=== PATIENT | male | born 1960 | race African-American/Black ===

== ENCOUNTER → 2017-05-11 16:33 | Outpatient (CLI) | payer MEDICARE | END | disposition home or self-care (01) | LOC: D.LABREF 16:33 | DX: Z86.79 Personal history of other diseases of the circulatory system (principal) ==

== ENCOUNTER → 2017-05-22 09:40 | Outpatient (CLI) | payer MEDICARE ==
--- NOTE | 2017-05-23 13:54 | EC ---
PATIENT:ABHIJEET MARCIAL DATE OF SERVICE: 05/22/17 SEX: M MEDICAL RECORD: [id number] DATE OF : 62 LOCATION:[facility] AGE OF PATIENT: 56 ADMISSION DATE: 05/22/17 REFERRING PHYSICIAN: INTERPRETING PHYSICIAN: SHAGGY FARLEY MD ECHOCARDIOGRAM REPORT ECHO CHARGES 4 ECHO COMPLETE CLINICAL DIAGNOSIS: ENDOCARDITIS, INFECTED KNEE 2 MONTHS AGO, DONE WITH ENDOCARDITIS, INFECTED KNEE 2 MO AGO, DONE WITH ANTIBOTICS ECHOCARDIOGRAPHIC MEASUREMENTS (adult normal given) AC root (d.<3.7cm) 4.0 cm LV Septum d (<1.2 cm> 1.4 cm Valve Excursion 1.8 cm LV Septum (systole) 1.6 cm Left Atria (s.<4.0cm> 3.8 cm LVPW d(<1.2cm) 1.4 cm RV (d.<2.3cm) 3.1 cm LVPW (sytole) 1.6 cm LV diastole(<5.6CM) 4.5 cm MV E-F(>70mm/sec) cm LV systole 2.8 cm LVOT Diameter 1.9 cm MV exc.(>10mm) 1.3 cm Est.ejection fraction (50-75%) % Pericardial Effusion N DOPPLER: LVIT cm/sec A 88.0 cm/sec E 121 cm/sec LA cm/sec RVSP 45 mmHg LVOT 142 cm/sec AOP1/2T m/s Asc. Ao 163 cm/sec RVOT 87 cm/sec RA cm/sec PA 119 cm/sec AV Gradient Peak 10.57mmHg AV Mean 5.59 mmHg AV Area 2.6 cm MV Gradient Peak 6.10 mmHg MV Mean 2.46 mmHg MV Area cm COMMENTS: Rotary Lithographic Press Operator: 2 SAUL CARVAJAL Application Spec: 3 Dr. Lizama TAPE# PACS DATE OF SERVICE: 05/22/2017 Echocardiogram FINDINGS: 1. Left ventricular chamber size is within normal limits. Left ventricular systolic function is normal. Overall ejection fraction estimated at 60%. 2. Left atrium, right atrium, and right ventricular chamber sizes are within ECHOCARDIOGRAM REPORT [id number] ABHIJEET MARCIAL normal limits. 3. Valvular structures have normal structure and motion. No evidence of vegetative endocarditis. 4. Doppler interrogation reveals mild mitral regurgitation, mild tricuspid regurgitation, no other valvular insufficiency or stenosis. 5. No evidence of pericardial effusion or left ventricular thrombus. OVERALL IMPRESSION: No evidence of vegetative endocarditis. TRANSINT:[id number] Voice Confirmation ID: [id number] DOCUMENT ID: [id number] SHAGGY FARLEY MD at 1354 CC: [id number] DICTATION DATE: 05/23/17 1114 STAVE CUTTING SUPERVISOR: 05/23/17 1231 DEP CLI 05/22/17 [place] [id number] [place] [id number]
== END | disposition home or self-care (01) ==
LOC: D.ECHO 05-16 09:00
DX: I33.0 Acute and subacute infective endocarditis (principal)

== ENCOUNTER 2017-11-26 19:35 | Emergency (ER) | payer MEDICARE ==
[2017-11-26 20:29] LABS: BASOPHILS 0.3 % (0-2); HEMATOCRIT 41.6 % (42.0-54.0); HEMOGLOBIN 14.1 g/dL (13.5-17.5); IMMATURE GRANULOCYTES 0.3 % (0-5); LYMPHOCYTES 44.1 % (15-50); MCH 33.2 pg (26.0-34.0); MCHC 33.9 g/dL (31.0-37.0); MCV 97.9 fL (80.0-100.0); MEAN PLATELET VOLUME 10.1 fL (7.4-10.4); MONOCYTES 7.1 % (2-11); NEUTROPHILS 46.2 % (40-80); RBC 4.25 10x6/uL (4.20-6.10); RDW 14.8 % (11.5-14.5); WBC 7.3 10x3/uL (4.8-10.8)
[2017-11-26 20:46] LABS: ANION GAP 15.9 mmol/L (8-16); BILIRUBIN - TOTAL 0.29 mg/dL (0.2-1.3); CALCIUM 8.7 mg/dL (8.5-10.1); CARBON DIOXIDE 27.4 mmol/L (21.0-32.0); CREATININE - SERUM 1.5 mg/dL (0.6-1.3); POTASSIUM - SERUM 3.3 mmol/L (3.5-5.1); PROTEIN - SERUM 8.9 g/dL (6.4-8.2)
[2017-11-26 20:51] LABS: PLATELET COUNT 229 10x3/uL (130-400)
== END 2017-11-26 22:18 | disposition home or self-care (01) ==
LOC: D.ER 19:35
PROVIDERS: Emergency Medicine
DX: T78.3XXA Angioneurotic edema, initial encounter (principal); F17.200 Nicotine dependence, unspecified, uncomplicated; I10 Essential (primary) hypertension; B20 Human immunodeficiency virus [HIV] disease

== ENCOUNTER 2018-01-25 18:41 | Emergency (ER) | payer MEDICARE ==
[2018-01-25 19:09] LABS: BASOPHILS 0.3 % (0-2); EOSINOPHILS 0.3 % (0-7); HEMATOCRIT 39.2 % (42.0-54.0); LYMPHOCYTES 35.2 % (15-50); MCH 32.4 pg (26.0-34.0); MCHC 33.2 g/dL (31.0-37.0); MCV 97.8 fL (80.0-100.0); MEAN PLATELET VOLUME 9.9 fL (7.4-10.4); MONOCYTES 18.9 % (2-11); NEUTROPHILS 45.3 % (40-80); PLATELET COUNT 150 10x3/uL (130-400); RBC 4.01 10x6/uL (4.20-6.10); RDW 14.4 % (11.5-14.5); WBC 3.6 10x3/uL (4.8-10.8)
[2018-01-25 19:21] LABS: ALBUMIN 3.7 g/dL (3.4-5.0); BILIRUBIN - TOTAL 0.4 mg/dL (0.2-1.3); CALCIUM 8.7 mg/dL (8.5-10.1); CARBON DIOXIDE 27.8 mmol/L (21.0-32.0); CREATININE - SERUM 1.7 mg/dL (0.6-1.3); PROTEIN - SERUM 8.8 g/dL (6.4-8.2)
[2018-01-25 19:23] LABS: POTASSIUM - SERUM 2.8 mmol/L (3.5-5.1)
[2018-01-25 21:03] LABS: APPEARANCE CLEAR (CLEAR); BILIRUBIN NEGATIVE (NEGATIVE); COLOR YELLOW (YELLOW); GLUCOSE NEGATIVE (NEGATIVE); KETONE NEGATIVE (NEGATIVE); NITRITE NEGATIVE (NEGATIVE); PROTEIN NEGATIVE (NEGATIVE); SPECIFIC GRAVITY 1.015 (1.005-1.020); UROBILINOGEN NORMAL (NORMAL)
== END 2018-01-25 21:10 | disposition home or self-care (01) ==
LOC: D.ER 18:41
PROVIDERS: Emergency Medicine
DX: E87.6 Hypokalemia (principal); J20.9 Acute bronchitis, unspecified; B20 Human immunodeficiency virus [HIV] disease; I10 Essential (primary) hypertension; F17.200 Nicotine dependence, unspecified, uncomplicated

== ENCOUNTER 2018-10-29 15:05 | Emergency (ER) | payer MEDICARE ==
[~2018-10-29] VITALS: Ht 188 cm; Wt 94.5 kg
[2018-10-29 15:12] VITALS: Ht 188 cm; Wt 94.5 kg
[2018-10-29] MEDS ORDERED: VERAPAMIL HCL40 MG (15:17)
[2018-10-29] MEDS ORDERED: NEURONTIN 300300 MG PO (17:36)
[2018-10-29 18:10] VITALS: BP 148/84
== END 2018-10-29 18:10 | disposition home or self-care (01) ==
LOC: D.ER 15:05
DX: G89.18 Other acute postprocedural pain (principal); Z98.890 Other specified postprocedural states

== ENCOUNTER 2018-11-05 05:26 | Emergency (ER) | payer MEDICARE, MEDICAID ==
[~2018-11-05] VITALS: Ht 188 cm; Wt 93.2 kg
[~2018-11-05 05:26] MED LIST: NEURONTIN 300300 MG PO; VERAPAMIL HCL40 MG
[2018-11-05 05:29] VITALS: Ht 188 cm; Wt 93.2 kg
[2018-11-05 06:45] VITALS: BP 208/104
== END 2018-11-05 06:45 | disposition home or self-care (01) ==
LOC: D.ER 05:26
DX: M54.5 Low back pain (principal); I10 Essential (primary) hypertension; F17.200 Nicotine dependence, unspecified, uncomplicated

== ENCOUNTER → 2018-12-23 09:42 | Outpatient (CLI) | payer MEDICARE, MEDICAID ==
[2018-11-05 05:29] VITALS: BMI 26.3
== END | disposition home or self-care (01) ==
LOC: D.LAB 09:42
DX: M54.5 Low back pain (principal); M96.1 Postlaminectomy syndrome, not elsewhere classified; M47.817 Spondylosis without myelopathy or radiculopathy, lumbosacral region; M47.899 Other spondylosis, site unspecified; M54.2 Cervicalgia

== ENCOUNTER → 2019-02-20 07:44 | Outpatient (CLI) | payer MEDICARE, MEDICAID ==
[2018-11-05 05:29] VITALS: BMI 26.3
== END | disposition home or self-care (01) ==
LOC: D.MRI 07:44
PROVIDERS: ATTEND Orthopaedic Surgery
DX: M17.0 Bilateral primary osteoarthritis of knee (principal)

== ENCOUNTER → 2019-03-04 09:51 | Outpatient (CLI) | payer MEDICARE, MEDICAID ==
[2018-11-05 05:29] VITALS: BMI 26.3
== END | disposition home or self-care (01) ==
LOC: D.MRI 09:51
PROVIDERS: ATTEND Orthopaedic Surgery
DX: M17.0 Bilateral primary osteoarthritis of knee (principal)

== ENCOUNTER → 2019-04-04 11:05 | Outpatient (CLI) | payer MEDICARE, MEDICAID ==
[2018-11-05 05:29] VITALS: BMI 26.3
[~2019-04-04 11:05] MED LIST changes: +AMITRIPTYLINE100 MG PO; +BAYER CHEWABLE81 MG PO; +BIKTARVY 50-201 EACH PO; +COREG25 MG PO; +HYDRALAZINE HCL25 MG PO; +HYDROCODON-ACE1 EAC7 PO; +K-DUR20 MEQ PO; +LASIX40 MG PO; +LYRICA100 MG PO; +VERAPAMIL HCL360 MG PO
[2019-04-04 11:28] LABS: BASOPHILS 0.4 % (0-2); EOSINOPHILS 2.7 % (0-7); HEMATOCRIT 36.3 % (42.0-54.0); HEMOGLOBIN 11.6 g/dL (13.5-17.5); IMMATURE GRANULOCYTES 0.7 % (0-5); LYMPHOCYTES 27.8 % (15-50); MCV 90.8 fL (80.0-100.0); MEAN PLATELET VOLUME 10.4 fL (7.4-10.4); MONOCYTES 8.5 % (2-11); NEUTROPHILS 59.9 % (40-80); WBC 7.3 10x3/uL (4.8-10.8)
[2019-04-04 11:29] LABS: PLATELET COUNT 203 10x3/uL (130-400)
[2019-04-04 11:43] LABS: ALBUMIN 3.4 g/dL (3.4-5.0); ANION GAP 9.6 mmol/L (8-16); BILIRUBIN - TOTAL 0.19 mg/dL (0.2-1.3); CALCIUM 9.3 mg/dL (8.5-10.1); CARBON DIOXIDE 32.9 mmol/L (21.0-32.0); CREATININE - SERUM 1.4 mg/dL (0.6-1.3); POTASSIUM - SERUM 3.5 mmol/L (3.5-5.1); PROTEIN - SERUM 8.3 g/dL (6.4-8.2)
[2019-04-04 12:56] LABS: ERYTHROCYTE SEDIMENTATION RATE 44 mm/hr (0-20)
[2019-05-19 15:22] VITALS: BMI 30.9
== END | disposition home or self-care (01) ==
LOC: D.LAB 11:05
PROVIDERS: ATTEND Orthopaedic Surgery
DX: B20 Human immunodeficiency virus [HIV] disease (principal); B18.2 Chronic viral hepatitis C; F10.20 Alcohol dependence, uncomplicated; F17.290 Nicotine dependence, other tobacco product, uncomplicated

== ENCOUNTER → 2019-04-08 08:41 | Outpatient (CLI) | payer MEDICARE, MEDICAID ==
[2018-11-05 05:29] VITALS: BMI 26.3
[~2019-04-08 08:41] MED LIST changes: -AMITRIPTYLINE100 MG PO; -BAYER CHEWABLE81 MG PO; -BIKTARVY 50-201 EACH PO; -COREG25 MG PO; -HYDRALAZINE HCL25 MG PO; -HYDROCODON-ACE1 EAC7 PO; -K-DUR20 MEQ PO; -LASIX40 MG PO; -LYRICA100 MG PO; -VERAPAMIL HCL360 MG PO
== END | disposition home or self-care (01) ==
LOC: D.MRI 08:41
PROVIDERS: ATTEND Orthopaedic Surgery
DX: D16.8 Benign neoplasm of pelvic bones, sacrum and coccyx (principal)

== ENCOUNTER 2019-04-22 10:30 | Inpatient (IN) | payer MEDICARE, MEDICAID ==
[~2019-04-22] VITALS: Ht 182.9 cm; Wt 103.4 kg
[2019-05-06] MEDS ORDERED: AMITRIPTYLINE100 MG PO (16:12)
[2019-05-06] MEDS ORDERED: LASIX40 MG PO (16:13)
[2019-05-06] MEDS ORDERED: HYDRALAZINE HCL25 MG PO (16:13)
[2019-05-06] MEDS ORDERED: LYRICA100 MG PO (16:13)
[2019-05-06] MEDS ORDERED: COREG25 MG PO (16:13)
[2019-05-06] MEDS ORDERED: K-DUR20 MEQ PO (16:14)
[2019-05-06] MEDS ORDERED: BIKTARVY 50-201 EACH PO (16:27)
[2019-05-06] MEDS ORDERED: VERAPAMIL HCL360 MG PO (16:30)
[2019-05-07 11:55] LABS: BASOPHILS 0.6 % (0-2); EOSINOPHILS 2.8 % (0-7); HEMATOCRIT 38.3 % (42.0-54.0); HEMOGLOBIN 11.9 g/dL (13.5-17.5); IMMATURE GRANULOCYTES 0.4 % (0-5); LYMPHOCYTES 31.6 % (15-50); MCH 28.7 pg (26.0-34.0); MCHC 31.1 g/dL (31.0-37.0); MCV 92.3 fL (80.0-100.0); MEAN PLATELET VOLUME 10.6 fL (7.4-10.4); MONOCYTES 12.5 % (2-11); NEUTROPHILS 52.1 % (40-80); RBC 4.15 10x6/uL (4.20-6.10); RDW 16.3 % (11.5-14.5)
[2019-05-07 11:57] LABS: PLATELET COUNT 156 10x3/uL (130-400)
[2019-05-07 11:58] LABS: APPEARANCE CLEAR (CLEAR); BILIRUBIN NEGATIVE (NEGATIVE); COLOR YELLOW (YELLOW); GLUCOSE NEGATIVE (NEGATIVE); KETONE NEGATIVE (NEGATIVE); NITRITE NEGATIVE (NEGATIVE); PROTEIN NEGATIVE (NEGATIVE); SPECIFIC GRAVITY 1.015 (1.005-1.020); UROBILINOGEN NORMAL (NORMAL)
[2019-05-07 12:05] LABS: INR 1.05 (0.85-1.17); PROTIME 13.2 SECONDS (11.6-15.0)
[2019-05-07 12:06] LABS: APTT 34.9 SECONDS (22.8-39.4)
[2019-05-07 12:21] LABS: ALBUMIN 3.4 g/dL (3.4-5.0); ANION GAP 8.9 mmol/L (8-16); BILIRUBIN - TOTAL 0.21 mg/dL (0.2-1.3); CALCIUM 8.3 mg/dL (8.5-10.1); CARBON DIOXIDE 32.4 mmol/L (21.0-32.0); CREATININE - SERUM 1.3 mg/dL (0.6-1.3); POTASSIUM - SERUM 3.3 mmol/L (3.5-5.1); PROTEIN - SERUM 8.1 g/dL (6.4-8.2)
[2019-05-13] VITALS (11 sets, daily range): BP systolic 120–188; BP diastolic 68–95; BMI 31.0
[2019-05-13 09:14] LABS: CALCIUM 8.4 mg/dL (8.5-10.1); CARBON DIOXIDE 29.4 mmol/L (21.0-32.0); CREATININE - SERUM 1.6 mg/dL (0.6-1.3); POTASSIUM - SERUM 3.4 mmol/L (3.5-5.1)
[2019-05-13 09:18] LABS: BASOPHILS 0.3 % (0-2); EOSINOPHILS 2.8 % (0-7); HEMATOCRIT 38.2 % (42.0-54.0); HEMOGLOBIN 12.3 g/dL (13.5-17.5); IMMATURE GRANULOCYTES 0.5 % (0-5); LYMPHOCYTES 33.7 % (15-50); MCH 28.9 pg (26.0-34.0); MCHC 32.2 g/dL (31.0-37.0); MCV 89.7 fL (80.0-100.0); MEAN PLATELET VOLUME 11.3 fL (7.4-10.4); MONOCYTES 7.2 % (2-11); NEUTROPHILS 55.5 % (40-80); PLATELET COUNT 162 10x3/uL (130-400); RBC 4.26 10x6/uL (4.20-6.10); WBC 5.7 10x3/uL (4.8-10.8)
--- NOTE | 2019-05-13 14:43 | NUR ---
PT ARRIVED TO PACU DROWSY BUT ORIENTED. PTS BP HIGH HOWEVER HE HAS BASELINE HYPERTENSION AND DID NOT TAKE ALL HIS HOME MEDICATIONS. NEW ORDERS REC'D FOR PRN ANTI-HYPERTENSIVE. PRN MEDICATION GIVEN AND BP NOW TRENDING DOWN AND CONTROLLED. PT ALSO C/O PAIN AND WAS PROVIDED WITH PRN PAIN MEDICATION AND ICE PACK AND ICE CHIPS. PT VOICED THANKS. NO CURRENT NEEDS. WILL CTM.
--- NOTE | 2019-05-13 15:46 | NUR ---
RECIEVED PT TO ROOM 2215 VIA BED FROM RECOVERY. ALERT AND ORIENTED. NO ACUTE DISTRESS NOTED AT THIS TIME. IV TO RIGHT HAND WITH LR @ 50 INFUSING. SITE WITHOUT REDNESS OR EDEMA. DRESSING C/D/I TO RIGHT LOWER EXTREMITY. PULSES PALPABLE. REPORTS PAIN 7/10 AT THIS TIME. ORIENTED TO CALL LIGHT, BED CONTROLS AND ROOM. CALL LIGHT WITHIN REACH. ENCOURAGED TO CALL WITH NEEDS. CONTINUE TO MONITOR.
--- NOTE | 2019-05-13 17:17 | OP ---
PATIENT NAME: ABHIJEET MARCIAL MEDICAL RECORD: [id number] :62 LOCATION:D.[facility] ADMISSION DATE:05/13/19 SURGEON: HAKAN ALMEIDA DO DATE OF OPERATION: 05/13/2019 PROCEDURE PERFORMED: Right total knee arthroplasty with 75 cruciate retaining Vanguard femur, 75 cruciate tibia, 31 three-peg thin patella, and a 12 E-poly cruciate standard bearing. PREOPERATIVE DIAGNOSIS: Right knee osteoarthritis. POSTOPERATIVE DIAGNOSIS: Right knee osteoarthritis. INDICATIONS: Mr. Marcial is a 58-year-old HIV positive male who had a right knee infection approximately 10 years ago or so. He has had right knee pain ever since and continued seeing different physicians. His right knee had been injected and did not work. I did x-ray and MRI for the signature knee to check and make sure there is no osteomyelitis of the bone and there was not, but he did have a spot on his pelvis, which had nothing to do with this. Once that was done, his insurance denied the surgery and then we got it reapproved. The patient was aware of his dramatically increased risk for infection; one due to his HIV and two due to prior septic knee. He is tired of dealing with the pain and he is willing to take the risk of possible infection as well as risks of bleeding, damage to nerves and vessels, need for further surgery, loosening, also blood clots, and even . He signed consent. SURGEON: Hakan Almeida DO I was assisted by Wei Perry, advanced nurse practitioner. He assisted with retraction. Also first front ventilator was Amol Smith, who assisted with closing. DESCRIPTION OF PROCEDURE: The patient was given block by anesthesia in the preoperative area. He was taken to the operative suite, laid in supine position, and given 2 grams of Ancef preoperatively and 80 mg of gentamicin. The right lower extremity was prepped and draped in sterile fashion. He was also given a gram of TXA. Once he was prepped and draped in sterile fashion, time-out was performed and everyone was in agreement with correct side, site, patient, and procedure. The incision was marked out and covered in Ioban. Once the Ioban was covering, a #10 blade scalpel was used to dissect down through the skin to the capsule and then a fresh #10 blade was used to do medial parapatellar approach through the knee. The patella was subluxed and fat pad was removed and milled down to fit a 31, so approximately 6 mm was taken off the patella. Once that was completed, the femur was exposed and the cutting guide for signature knee was placed and pinned and then the distal femur was cut. The same process was done for the tibia and then the knee was brought into extension. Lamina roasterman was brought in between them. The menisci were removed with Bovie. Any bleeding was coagulated with Aquamantys as tourniquet was not used. The extension block did not fit, so more distal femur and more tibia were taken. Once I had sufficient tibia and distal femur, medial release was done and extension block fit well. The 4-in-1 cutting block was put on the femur for 75. Austen wing was used to ensure no notching and the femur was cut. Once femur was cut, the trial was impacted into place. Tibia with poly liner was floated in and ranged, and rotation was marked. Once rotation was marked, the lug holes were drilled for the femur and the peg holes for the patella. This was removed. The tibia was exposed and a 75 was used to size it. This was OPERATIVE REPORT [id number] ABHIJEET MARCIAL drilled and punched. Extra holes were placed in the tibia as well as in the femur to get more bleeding as the femur depressed it. The cement was then mixed and put in the tibia as well as component impacted into place. Excess cement was removed. This step was repeated and then the femur was put on. A 10 poly was put in between them and brought to extension. Excess cement was removed from that and then the patella was prepared with curette, irrigation, and suction. The cement was put on the patella and on the component and squeezed into place. Excess cement was removed. The knee was thoroughly irrigated at that point while the cement dried. Once the cement was dried, I trialed a 10 and a 12 poly. The 12 fit better and had good medial and lateral stability and concomitant full extension. This was put in and locked into place. The antibiotic powder of vancomycin and tobramycin was put in the knee and Surgicel powder was placed in the knee. The capsule was then closed with [id number] of #2 Vicryl. The skin was closed with 2-0 Vicryl in inverted interrupted fashion and a ZipLine was placed on the knee. Once the ZipLine was placed on the knee, it was covered with Adaptic, 4 x 4, ABD, Webril, Tyrel wrap, and then ELLY hose stocking was placed up to the knee. The patient was then awakened and taken to recovery in stable condition. BLOOD LOSS: Approximately 250 mL. COMPLICATIONS: None. TRANSINT:[id number] Voice Confirmation ID: [id number] DOCUMENT ID: [id number] HAKAN ALMEIDA DO at 1717 CC: [id number] DICTATION DATE: 05/13/19 1408 PLATER SUPERVISOR: 05/13/19 1535 ADM IN [place] [id number] [place] [id number]
--- NOTE | 2019-05-13 20:00 | NUR ---
ASSESSMENT PER FLOWSHEET. DRSG TO RT KNEE C/D/I. CPM ON AT THIS TIME DENIES PAIN. IV PATENT RT HAND OF 1/2NS AT 50CC'S/HR. TEDS/SCD'S ON BILATERAL LOWER LEGS.
--- NOTE | 2019-05-13 21:30 | NUR ---
CPM REMOVED. PATIENT REQUESTING SOME FOOD TO EAT. SANDWICH TRAY AND 2 SODAS GIVEN TO PT. 100% CONSUMED.
--- NOTE | 2019-05-13 22:30 | NUR ---
VOIDED IN URINAL. UA SPECIMEN OBTAINED AND SENT TO LAB.
[2019-05-13 23:58] LABS: APPEARANCE CLEAR (CLEAR); BILIRUBIN NEGATIVE (NEGATIVE); COLOR YELLOW (YELLOW); GLUCOSE NEGATIVE (NEGATIVE); KETONE NEGATIVE (NEGATIVE); NITRITE NEGATIVE (NEGATIVE); PROTEIN TRACE mg/dL (NEGATIVE); UROBILINOGEN NORMAL (NORMAL)
--- NOTE | 2019-05-14 | NUR ---
AWAKE TALKING ON HIS PHONE DENIES PAIN OR DISCOMFORT.
--- NOTE | 2019-05-14 02:00 | NUR ---
MEDS GIVEN PER DEC. AWAKE PLAYING A GAME ON HIS PHONE.
--- NOTE | 2019-05-14 03:42 | NUR ---
RESTING QUIETLY BODY IN GOOD ALIGNMENT.
[2019-05-14 05:23] VITALS: BP 169/92
[2019-05-14 05:34] LABS: BASOPHILS 0.1 % (0-2); EOSINOPHILS 0.1 % (0-7); HEMATOCRIT 34.2 % (42.0-54.0); HEMOGLOBIN 10.8 g/dL (13.5-17.5); IMMATURE GRANULOCYTES 0.2 % (0-5); LYMPHOCYTES 5.9 % (15-50); MCH 28.7 pg (26.0-34.0); MCHC 31.6 g/dL (31.0-37.0); MEAN PLATELET VOLUME 10.8 fL (7.4-10.4); MONOCYTES 7.3 % (2-11); NEUTROPHILS 86.4 % (40-80); PLATELET COUNT 167 10x3/uL (130-400); RBC 3.76 10x6/uL (4.20-6.10); RDW 16.1 % (11.5-14.5)
[2019-05-14 06:05] LABS: ANION GAP 12.2 mmol/L (8-16); CALCIUM 7.8 mg/dL (8.5-10.1); CARBON DIOXIDE 26.3 mmol/L (21.0-32.0); CREATININE - SERUM 1.8 mg/dL (0.6-1.3); POTASSIUM - SERUM 3.5 mmol/L (3.5-5.1)
[2019-05-14 06:25] LABS: WBC 10.2 10x3/uL (4.8-10.8)
[2019-05-14 09:05] VITALS: BP 192/98
[2019-05-14 12:57] VITALS: BP 161/83
[2019-05-14 17:08] LABS: BASOS 0 % (Not Estab.); CD4 - % CD4 POS. LYMPH 21.2 % (30.8-58.5); CD4 - ABSOLUTE CD4 HELPER 148 /uL (359-1519); EOS 0 % (Not Estab.); HEMATOCRIT 37.2 % (37.5-51.0); HEMOGLOBIN 11.4 g/dL (13.0-17.7); LYMPHS 7 % (Not Estab.); LYMPHS (ABSOLUTE) 0.7 x10E3/uL (0.7-3.1); MCH 28.1 pg (26.6-33.0); MCHC 30.6 g/dL (31.5-35.7); MCV 92 fL (79-97); MONOCYTES 3 % (Not Estab.); MONOCYTES (ABSOLUTE) 0.3 x10E3/uL (0.1-0.9); NEUTROPHILS 89 % (Not Estab.); PLATELETS 188 x10E3/uL (150-450); RBC 4.06 x10E6/uL (4.14-5.80); WBC 10.1 x10E3/uL (3.4-10.8)
[2019-05-14 19:21] VITALS: BP 137/87
--- NOTE | 2019-05-14 19:37 | NUR ---
PT RESTING IN BED AT 1600. NOTICED BRIGHT RED BLOOD TO CANDELARIA WRAP AND ELLY HOSE 4"X4". TOOK DRESSINF DOWN. INCISION ZIPPER IN TACT. SWELLING NOTED. NO ACTIVE BLEEDING NOTED. 4X4S APPLIED. WRAPPED WITH NEW CANDELARIA AND ELLY. SPOKE WITH DR ALMEIDA. DR ALMEIDA , "OK." PT PLACED ON CPM. ICE PACK ON KNEE. NO S/S OF ACUTE DISTRESS. CL IN PLACE.
--- NOTE | 2019-05-14 20:00 | NUR ---
ASSESSMENT PER FLOWSHEET. DRSG TO RT KNEE WITH DRY BLOOD NOTED ON CANDELARIA WRAP. ICE BAG PLACED TO SITE. IV PATENT RT HAND OF 1/2NS AT 50CC'S/HR. SITE CLEAR. VOIDS WELL IN URINAL. SCD'S ON RT LEG IN CPM MACHINE. WILL REMOVE AT 2030
--- NOTE | 2019-05-14 21:00 | NUR ---
MEDS GIVEN PER DEC. CPM OFF. PATIENT TURNS SELF IN BED.
[2019-05-14 21:25] VITALS: BP 136/78
--- NOTE | 2019-05-15 | NUR ---
EYES CLOSED RESPIRATIONS WITH EASE AND UNLABORED.
[2019-05-15 02:22] VITALS: BP 141/78
--- NOTE | 2019-05-15 03:42 | NUR ---
RESTING QUIETLY DENIES NEEDS.
[2019-05-15 05:55] VITALS: BP 146/82
[2019-05-15 06:12] LABS: BASOPHILS 0.2 % (0-2); EOSINOPHILS 3.4 % (0-7); HEMATOCRIT 32.4 % (42.0-54.0); HEMOGLOBIN 10.2 g/dL (13.5-17.5); IMMATURE GRANULOCYTES 0.3 % (0-5); LYMPHOCYTES 6.9 % (15-50); MCH 28.1 pg (26.0-34.0); MCHC 31.5 g/dL (31.0-37.0); MCV 89.3 fL (80.0-100.0); MEAN PLATELET VOLUME 11.3 fL (7.4-10.4); MONOCYTES 7.6 % (2-11); NEUTROPHILS 81.6 % (40-80); PLATELET COUNT 159 10x3/uL (130-400); RBC 3.63 10x6/uL (4.20-6.10)
[2019-05-15 06:41] LABS: ANION GAP 13.3 mmol/L (8-16); CALCIUM 7.4 mg/dL (8.5-10.1); CARBON DIOXIDE 25.5 mmol/L (21.0-32.0); CREATININE - SERUM 1.8 mg/dL (0.6-1.3); POTASSIUM - SERUM 3.8 mmol/L (3.5-5.1)
--- NOTE | 2019-05-15 08:03 | NUR ---
PT RESTING IN BED. ON CPM. "PAIN OF 15!" NO S/S OF ACUTE DISTRESS. CL IN PLACE.
[2019-05-15 09:41] VITALS: BP 159/87
--- NOTE | 2019-05-15 10:39 | NUR ---
WHILE PT UP WITH PT. BRIGHT RED BLOOD 6X6 NOTICED ON CANDELARIA WRAP. CHANGED DRESSING PER MD ORDER. ICE PACK APPLIED. NO S/S OF ACUTE DISTRESS. CL IN PLACE.
[2019-05-15 13:51] VITALS: BP 123/76
--- NOTE | 2019-05-15 15:09 | MORECARE ---
CASE MANAGEMENT DISCHARGE SUMMARY PATIENT: ABHIJEET MARCIAL UNIT: [id number] ADM DATE: 05/13/19 AGE: 58 : 62 SEX: M ROOM/BED: D.2215 AUTHOR: TAYLOR NEGRO PHYSICIAN: REFERRING PHYSICIAN: JUNE ALMEIDA DO DATE OF SERVICE: 05/15/19 Discharge Plan Patient Name: ABHIJEET MARCIAL [facility] [facility] 1960 Planned Disposition: Home Anticipated Discharge Date: Discharge Date: Expected LOS: Initial Reviewer: [email or web address] Initial Review Date: 05/13/2019 Generated: 05/15/19 4:09 pm DCPIA - Discharge Planning Initial Assessment Updated by [email or web address]: Anita Baeza on 05/15/19 3:06 pm * Is the patient Alert and Oriented? Yes * How many steps to enter\exit or inside your home? 10-14 * PCP RIDGE * Pharmacy [facility] * Preadmission Environment Home Alone * ADLs Independent * Equipment Rolling Walker Walker * Other Equipment CPM ICE MACHINE * List name and contact numbers for known caregivers / representatives who currently or will assist patient after discharge: KATARZYNA MARCIAL [phone] * Verbal permission to speak to the caregivers and representatives has been obtained from the patient. N/A * Community resources currently utilized None * Additional services required to return to the preadmission environment? Yes * Can the patient safely return to the preadmission environment? Yes * Has this patient been hospitalized within the prior 30 days at any hospital? No Patient Name: ABHIJEET MARCIAL Page [id number] at 1509 All edits/amendments must be made on the electronic document DICTATION DATE: 05/15/19 1509 CRUSHED STONE GRADER: BECK 05/15/19 1509 RPT#: [id number] DC DATE: STATUS: ADM IN [facility] [address] [place] [address] END OF REPORT
--- NOTE | 2019-05-15 15:20 | MORECARE ---
CASE MANAGEMENT DISCHARGE SUMMARY PATIENT: ABHIJEET MARCIAL UNIT: [id number] ADM DATE: 05/13/19 AGE: 58 : 62 SEX: M ROOM/BED: D.2215 AUTHOR: SRUTHI,DOC PHYSICIAN: REFERRING PHYSICIAN: JUNE ALMEIDA DO DATE OF SERVICE: 05/15/19 Discharge Plan Patient Name: ABHIJEET MARCIAL Facility: [facility]:[place] : 1960 Planned Disposition: Home Anticipated Discharge Date: Discharge Date: Expected LOS: Initial Reviewer: [email or web address] Initial Review Date: 05/13/2019 Generated: 05/15/19 4:20 pm Comments DCP- Discharge Planning Updated by [email or web address]: Anita Baeza on 05/15/19 2:[address] Patient Name: ABHIJEET MARCIAL Admission Status: Elective Accout number: [id number] Admission Date: 05-13-2019 : 1960 Admission Diagnosis:UNILATERAL PRIMARY OSTEOARTHRITIS, RIGHT KNEE Attending: JUNE ALMEIDA Current LOS: 2 Anticipated DC Date: Planned Disposition: Home Primary Insurance: [facility] MEDICARE SOLUTIONS Discharge Planning Comments: CM met with patient to complete initial dc planning assessment. CM educated patient on the CM role and verbal consent given by patient to complete assessment. Patient lives at home independently, he lives alone. At discharge patient plans to return home and feels this is a safe discharge. He stated that his son will be his one to drive him home and also take him to and from OP PT at [facility]. CM discussed availability of home health, rehab services, and medical equipment. He has a walker x2 CPM and Ice Machine that was set up by Dr Levy office. I have set up his OP PT appointment for SundayMay 20 @ 9:45am . A copy of the order will be sent home with the patient in his DC packet. IMM served and explained to patient. Patient denied known discharge needs at this time. CM will continue to follow and will assist as needed with dc plans/needs. Green Chain Worker: Anita Baeza DCPIA - Discharge Planning Initial Assessment Updated by [email or web address]: Anita Baeza on 05/15/19 3:06 pm * Is the patient Alert and Oriented? Yes * How many steps to enter\exit or inside your home? 10-14 * PCP RIDGE * Pharmacy [facility] * Preadmission Environment Home Alone * ADLs Independent * Equipment Rolling Walker Walker * Other Equipment CPM ICE MACHINE * List name and contact numbers for known caregivers / representatives who currently or will assist patient after discharge: KATARZYNA MARCIAL [phone] * Verbal permission to speak to the caregivers and representatives has been obtained from the patient. N/A * Community resources currently utilized None * Additional services required to return to the preadmission environment? Yes * Can the patient safely return to the preadmission environment? Yes * Has this patient been hospitalized within the prior 30 days at any hospital? No Coverage Notice Reviewer: [id number] Rachel Baeza Notice Issued Date-Time: 05/15/2019 14:15 Notice Type: IM Discharge Notice Notice Delivered To: Patient Relationship to Patient: Floor Sanding Machine Operator Name: Delivery Method: HAND - Hand Delivered Jahaira Days: Prior Verbal Notification: Recipient Understood Notice: Yes Recipient Signature: Yes Med Rec Note Co-signed by Attending: Coverage Notice Comment: Last DP export: 05/15/19 2:09 p Patient Name: ABHIJEET MARCIAL Page [id number] at 1520 All edits/amendments must be made on the electronic document DICTATION DATE: 05/15/19 152 DELIVERER PHARMACY: [facility] 05/15/19 1520 RPT#: [id number] DC DATE: STATUS: ADM IN [facility] [address] [place] [address] END OF REPORT
--- NOTE | 2019-05-15 16:00 | NUR ---
PT ITCHING."THE OXYCODONE IS MAKING ME CLAW MYSELF." CALLED DR ALMEIDA. OXYCODONE DC. TO FOR NORCO 10/325MG Q4PRN FOR PAIN. NO S/S OF ACUTE DISTRESS. CL IN PLACE.
[2019-05-15 17:46] VITALS: BP 135/53
--- NOTE | 2019-05-15 18:43 | NUR ---
1830 PT ON CPM. NORCO GIVEN FOR PAIN ORDERED PRN. NO S/S OF ACUTE DISTRESS. CL IN PLACE.
[2019-05-15 21:13] VITALS: BP 119/63
--- NOTE | 2019-05-16 04:23 | NUR ---
ASSESSED AT THE BEGINNING OF THE SHIFT. PT IS ALERT AND ORIENTED, ABLE TO VERBALIZE NEEDS. HE WAS ON CPM AT THE BEGINNING OF THE SHIFT AND TOLERATED IT WELL. HIS DRESSING IS CLEAN DRY AND INTACT. HE REQUESTED THAT THE ELLY BE REMOVED AND REFUSED THE SCD ON HIS OTHER LEG. EARLY IN THE EVENING HE REQUESTED THE STUFF TO TAKE A BEDBATH AND TOOK IT BY HIMSELF WITH A SET UP. ABOUT 2300 HE PULLED HIS IV OUT AND AT THAT TIME IT WAS STOPPED. HE FELT HE WAS GOING TO GET TO GO HOME TODAY SO WE LEFT IT OUT WITH THE HOPE THAT HE WOULD NOT NEED ANOTHER ONE. HE HAS DONE WELL WITH HIS PAIN MEDS AND SLEPT MOST OF THE NIGHT SO FAR.
[2019-05-16 05:28] VITALS: BP 124/54
[2019-05-16 06:58] LABS: BASOPHILS 0.1 % (0-2); EOSINOPHILS 3.5 % (0-7); HEMATOCRIT 29.6 % (42.0-54.0); HEMOGLOBIN 9.5 g/dL (13.5-17.5); IMMATURE GRANULOCYTES 0.5 % (0-5); LYMPHOCYTES 6.8 % (15-50); MCH 28.3 pg (26.0-34.0); MCHC 32.1 g/dL (31.0-37.0); MCV 88.1 fL (80.0-100.0); MEAN PLATELET VOLUME 11.5 fL (7.4-10.4); MONOCYTES 7.8 % (2-11); NEUTROPHILS 81.3 % (40-80); PLATELET COUNT 174 10x3/uL (130-400); RBC 3.36 10x6/uL (4.20-6.10); RDW 15.7 % (11.5-14.5); WBC 9.3 10x3/uL (4.8-10.8)
--- NOTE | 2019-05-16 07:20 | NUR ---
PER WEB ARCHITECT PT TEMP THIS MORNING 101.7, DR ALMEIDA ADVISED OF TEMP[, GAVE PT I/S AND TEACHING COMPLETED, PT VOICED UNDERSTANDING, CONTINUE WITH PLAN OF CARE
[2019-05-16 07:30] LABS: CALCIUM 7.3 mg/dL (8.5-10.1); CARBON DIOXIDE 21.1 mmol/L (21.0-32.0); POTASSIUM - SERUM 4.1 mmol/L (3.5-5.1)
[2019-05-16 07:32] LABS: CREATININE - SERUM 3.1 mg/dL (0.6-1.3)
[2019-05-16 08:20] VITALS: BP 137/77
[2019-05-16 12:25] VITALS: BP 145/58
--- NOTE | 2019-05-16 13:44 | NUR ---
I have reviewed this patient and I concur with the Shift Assessment completed by the Licensed Practical Nurse today this shift.
--- NOTE | 2019-05-16 14:56 | NUR ---
ASSISTED PT BACK TO BED FROM SITTING UP IN CHAIR, PT IS A 2 PERSON ASSIST, W/V IN PLACE CONTINUE WITH PLAN OF CARE
--- NOTE | 2019-05-16 15:38 | NUR ---
PER DR. ALMEIDA'S ORDERS A PREVENA DRESSING WAS APPLIED OVER THE SURGICAL INCISION ON RIGHT KNEE. INCISION WAS INTACT AND WITHOUT REDNESS OR ODOR. PT TOLERATED WELL.
[2019-05-16 15:48] VITALS: BP 102/54
--- NOTE | 2019-05-16 15:50 | NUR ---
Rehab Prescreening Consult recieved and the chart has been reviewed. He is managed Medicare and will require a preauth. He has a PT eval and an OT eval ordered. Once both are completed all information will be submitted for insurance review. Dulce Aguillon RN Clinical Liaison, Rehab
--- NOTE | 2019-05-16 16:22 | NUR ---
PT IV IN RT FA CAME OUT WHEN PT ROLLED OVER IN BED. PT HAS NO IV MEDS SCHEDULED, 1/S NS AT 50 WILL DC PT IV. CONTINUE WITH PLAN OF CARE
[2019-05-16 20:38] VITALS: BP 101/54
--- NOTE | 2019-05-16 21:00 | NUR ---
A&O X 4. REPORTS HIS PAIN LEVEL HAS GONE DOWN AND WISHES TO BE PUT ON CPM NOW. INFORMED IT WILL BE REMOVED AT MIDNIGHT, PT VERBALIZED UNDERSTANDING. CPM APPLIED, WILL CONTINUE TO MONITOR.
--- NOTE | 2019-05-17 02:02 | NUR ---
I have reviewed this patient and I concur with the Shift Assessment completed by the Licensed Practical Nurse today this shift.
[2019-05-17 04:00] VITALS: BP 116/58
[2019-05-17 06:24] LABS: ANION GAP 14.1 mmol/L (8-16); CALCIUM 7.3 mg/dL (8.5-10.1); CARBON DIOXIDE 23.5 mmol/L (21.0-32.0); CREATININE - SERUM 2.8 mg/dL (0.6-1.3); POTASSIUM - SERUM 3.6 mmol/L (3.5-5.1)
[2019-05-17 06:48] LABS: BASOPHILS 0.2 % (0-2); EOSINOPHILS 4.8 % (0-7); HEMATOCRIT 27.4 % (42.0-54.0); HEMOGLOBIN 8.9 g/dL (13.5-17.5); IMMATURE GRANULOCYTES 0.7 % (0-5); LYMPHOCYTES 8.2 % (15-50); MCH 28.3 pg (26.0-34.0); MCHC 32.5 g/dL (31.0-37.0); MEAN PLATELET VOLUME 10.7 fL (7.4-10.4); MONOCYTES 9.3 % (2-11); NEUTROPHILS 76.8 % (40-80); PLATELET COUNT 179 10x3/uL (130-400); RBC 3.15 10x6/uL (4.20-6.10); RDW 15.5 % (11.5-14.5); WBC 8.2 10x3/uL (4.8-10.8)
[2019-05-17 08:46] VITALS: BP 135/77
[2019-05-17 12:42] VITALS: BP 117/57
--- NOTE | 2019-05-17 14:01 | MORECARE ---
CASE MANAGEMENT DISCHARGE SUMMARY PATIENT: ABHIJEET MARCIAL UNIT: [id number] ADM DATE: 05/13/19 AGE: 58 : 62 SEX: M ROOM/BED: D.2215 AUTHOR: SRUTHI,DOC PHYSICIAN: REFERRING PHYSICIAN: JUNE ALMEIDA DO DATE OF SERVICE: 05/17/19 Discharge Plan Patient Name: ABHIJEET MARCIAL Facility: [facility]:[place] : 1960 Planned Disposition: Home Anticipated Discharge Date: Discharge Date: Expected LOS: Initial Reviewer: [email or web address] Initial Review Date: 05/13/2019 Generated: 05/17/19 3:01 pm Comments DCP- Discharge Planning Updated by [email or web address]: Jada Villarreal on 05/17/19 12:[address] [facility] IS FOLLOWING THIS PATIENT. PHYSICAL THERAPY EVAL HAS BEEN COMPLETED. THE OT EVAL WILL LIKELY BE DONE ON SUNDAY. THE LIBRARY MEDIA TECHNICIAN WILL FORWARD APPROPRIATE CLINICAL W/ PT AND OT EVAL TO THE PATIENT'S MANAGED MEDICARE INSURER FOR AUTHORIZATION WHEN OT EVAL COMPLETE. LIKELY WILL SUBMIT TO [facility] MEDICARE SOLUTIONS ON SUNDAY. DCP- Discharge Planning Updated by [id number]: Anita Baeza on 05/15/19 2:[address] Patient Name: ABHIJEET MARCIAL Admission Status: Elective Accout number: [id number] Admission Date: 05-13-2019 : 1960 Admission Diagnosis:UNILATERAL PRIMARY OSTEOARTHRITIS, RIGHT KNEE Attending: JUNE ALMEIDA Current LOS: 2 Anticipated DC Date: Planned Disposition: Home Primary Insurance: [facility] MEDICARE SOLUTIONS Discharge Planning Comments: CM met with patient to complete initial dc planning assessment. CM educated patient on the CM role and verbal consent given by patient to complete assessment. Patient lives at home independently, he lives alone. At discharge patient plans to return home and feels this is a safe discharge. He stated that his son will be his one to drive him home and also take him to and from OP PT at [facility]. CM discussed availability of home health, rehab services, and medical equipment. He has a walker x2 CPM and Ice Machine that was set up by Dr Levy office. I have set up his OP PT appointment for SundayMay 20 @ 9:45am . A copy of the order will be sent home with the patient in his DC packet. IMM served and explained to patient. Patient denied known discharge needs at this time. CM will continue to follow and will assist as needed with dc plans/needs. Conference Services Manager: Anita Baeza DCPIA - Discharge Planning Initial Assessment Updated by [email or web address]: Anita Baeza on 05/15/19 3:06 pm * Is the patient Alert and Oriented? Yes * How many steps to enter\exit or inside your home? 10-14 * PCP FARO * Pharmacy [facility] [address] * Preadmission Environment Home Alone * ADLs Independent * Equipment Rolling Walker Walker * Other Equipment CPM ICE MACHINE * List name and contact numbers for known caregivers / representatives who currently or will assist patient after discharge: KATARZYNA MARCIAL [phone] * Verbal permission to speak to the caregivers and representatives has been obtained from the patient. N/A * Community resources currently utilized None * Additional services required to return to the preadmission environment? Yes * Can the patient safely return to the preadmission environment? Yes * Has this patient been hospitalized within the prior 30 days at any hospital? No Coverage Notice Reviewer: [email or web address] - Anita Baeza Notice Issued Date-Time: 05/15/2019 14:15 Notice Type: IM Discharge Notice Notice Delivered To: Patient Relationship to Patient: Communications Representative Name: Delivery Method: HAND - Hand Delivered Jahaira Days: Prior Verbal Notification: Recipient Understood Notice: Yes Recipient Signature: Yes Med Rec Note Co-signed by Attending: Coverage Notice Comment: Last DP export: 05/15/19 2:20 p Patient Name: ABHIJEET MARCIAL Page [id number] at 1401 All edits/amendments must be made on the electronic document DICTATION DATE: 05/17/19 1401 CATH LAB RADIOLOGY TECHNICIAN: BECK 05/17/19 1401 RPT#: [id number] DC DATE: STATUS: ADM IN [facility] [address] [place] [address] END OF REPORT
--- NOTE | 2019-05-17 14:18 | NUR ---
I have reviewed this patient and I concur with the Shift Assessment completed by the Licensed Practical Nurse today this shift.
[2019-05-17 18:26] VITALS: BP 124/65
--- NOTE | 2019-05-17 21:00 | NUR ---
A&O. REMOVED FROM CPM. DENIES PAIN/DISCOMFORT. PT GOT UP AND AMBULATED TO CHAIR INDEPENDENTLY. REPORTS DECREASED APPETITE SINCE ADMISSION. DENIES NEEDS AT THIS TIME, WILL CONTINUE TO MONITOR.
[2019-05-18 02:19] VITALS: BP 101/45
--- NOTE | 2019-05-18 05:06 | NUR ---
I have reviewed this patient and I concur with the Shift Assessment completed by the Licensed Practical Nurse today this shift.
[2019-05-18 06:01] VITALS: BP 151/78
[2019-05-18 06:17] LABS: HEMATOCRIT 27.3 % (42.0-54.0); HEMOGLOBIN 8.9 g/dL (13.5-17.5); MCH 28.3 pg (26.0-34.0); MCHC 32.6 g/dL (31.0-37.0); MCV 86.7 fL (80.0-100.0); MEAN PLATELET VOLUME 10.7 fL (7.4-10.4); PLATELET COUNT 200 10x3/uL (130-400); RBC 3.15 10x6/uL (4.20-6.10); RDW 15.4 % (11.5-14.5); WBC 6.7 10x3/uL (4.8-10.8)
[2019-05-18 06:18] LABS: ANION GAP 11.8 mmol/L (8-16); CALCIUM 7.9 mg/dL (8.5-10.1); CARBON DIOXIDE 24.8 mmol/L (21.0-32.0); POTASSIUM - SERUM 3.6 mmol/L (3.5-5.1)
--- NOTE | 2019-05-18 08:00 | NUR ---
ASSESSMENT PER FLOW SHEET. PT IS WITHOUT DISTRESS.CALL LIGHT IN REACH.
[2019-05-18 08:28] LABS: EOSINOPHILS 10 % (0-7); HYPOCHROMASIA 3+; LYMPHOCYTES 16 % (15-50); MONOCYTES 9 % (2-11); NEUTROPHILS 64 % (40-80); PLATELET ESTIMATE NORMAL; PLATELET MORPHOLOGY GIANT PLTS PRESENT
[2019-05-18 09:50] VITALS: BP 141/73
[2019-05-18 12:59] VITALS: BP 128/66
--- NOTE | 2019-05-18 15:20 | NUR ---
REHAB PRESCREENING Rehab referral received and chart reviewed. This patient has [facility] as his insurance provider which requires a pre-auth for acute inpatient rehab. OT eval has been ordered but not completed. Will submit information to [facility] for pre-auth once OT is entered. Thank you for this referral! Niecy Peters, MANAGER MILITARY Rehab PD
--- NOTE | 2019-05-18 18:09 | NUR ---
REMAINS WITHOUT CHANGE FROM INITIAL SHIFT ASSESSMENT.CONT PLAN OF CARE
[2019-05-18 18:47] VITALS: BP 145/77
[2019-05-18 20:00] VITALS: BP 130/72
--- NOTE | 2019-05-18 20:18 | NUR ---
RCV`D PT. PT SITTING IN BED WATCHING TV, ALERT AND ORIENTED. NO SIGNS OF DISTRESS. PT ASKED ME WHAT MEDS HE WOULD BE TAKING TONIGHT AND WHEN I TOLD HIM THE LIST OF MEDS HE WOULD GET AT 9 HE SAID THAT HE "DIDNT NEED ALL THAT CRAP BUT WE WOULD DEAL WITH IT LATER." DENIES ANY NEEDS AT THIS TIME. BED LOW, CALL LIGHT IN REACH, RAILS UP X 2. WILL CONTINUE TO MONITOR.
[2019-05-19] VITALS: BP 129/67
[2019-05-19 04:00] VITALS: BP 126/71
--- NOTE | 2019-05-19 05:39 | NUR ---
PT REFUSED PROTONIX STATED "I DONT NEED THAT CRAP, AINT NOTHING WRONG WITH MY STOMACH".
[2019-05-19 08:38] LABS: BASOPHILS 0.4 % (0-2); EOSINOPHILS 4.8 % (0-7); HEMATOCRIT 23.7 % (42.0-54.0); HEMOGLOBIN 7.7 g/dL (13.5-17.5); IMMATURE GRANULOCYTES 1.6 % (0-5); LYMPHOCYTES 17.7 % (15-50); MCH 27.9 pg (26.0-34.0); MCHC 32.5 g/dL (31.0-37.0); MCV 85.9 fL (80.0-100.0); MONOCYTES 12.8 % (2-11); NEUTROPHILS 62.7 % (40-80); PLATELET COUNT 162 10x3/uL (130-400); RBC 2.76 10x6/uL (4.20-6.10); RDW 15.6 % (11.5-14.5); WBC 6.9 10x3/uL (4.8-10.8)
[2019-05-19 08:56] LABS: ANION GAP 13.9 mmol/L (8-16); CALCIUM 7.6 mg/dL (8.5-10.1); CARBON DIOXIDE 24.6 mmol/L (21.0-32.0); CREATININE - SERUM 1.5 mg/dL (0.6-1.3); POTASSIUM - SERUM 3.5 mmol/L (3.5-5.1)
--- NOTE | 2019-05-19 13:01 | NUR ---
WOUND CARE RIGHT KNEE INCISION SITE - MINIMAL DRAINAGE, NO SIGNS OF INFECTION, INCISION HOLDING WELL. [employer] PREVENA WOUND VAC APPLIED AND WELL TOLERATED. VAC TO STAY IN PLACE FOR ONE WEEK. PLEASE CONTACT WOUND CARE NURSE WITH ANY QUESTIONS OR CONCERNS.
--- NOTE | 2019-05-19 13:02 | NUR ---
I have reviewed this patient and I concur with the Shift Assessment completed by the Licensed Practical Nurse today this shift.
[2019-05-19 13:56] VITALS: BP 131/74
[2019-05-19 15:22] VITALS: Ht 182.9 cm; Wt 103.4 kg
--- NOTE | 2019-05-19 16:00 | NUR ---
OT NOTE: PT STATED HE HAS A FEVER . PT WAITING TO GO TO INPATIENT REHAB. PT COMPLETED SIT TO STAND WITH SBA. PT COMPLETED SUPINE TO SIT WITH SBA. PT COMPLETED EOB SITTING BALANCE WITH SBA. PT COMPLETED SIMPLE GROOMING MOD I. THANK YOU, JEET ZAMUDIO
--- NOTE | 2019-05-19 16:23 | NUR ---
MEDICATED WITH NORCO AT THIS TIME FOR C/O KNEE PAIN AND HEADACHE. C/L IN REACH AT BEDSIDE.
--- NOTE | 2019-05-19 19:40 | NUR ---
UP AMBULATING THROUGHOUT UNIT AD JORDYN WITH WALKER, DENIES ANY PAIN AT THIS TIME. ABLE TO VOICE ALL NEEDS. WILL NOTE ANY CHANGE.
[2019-05-19 20:00] VITALS: BP 133/71
[2019-05-20] VITALS: BP 133/67
--- NOTE | 2019-05-20 03:05 | NUR ---
I have reviewed this patient and I concur with the Shift Assessment completed by the Licensed Practical Nurse today this shift.
[2019-05-20 04:00] VITALS: BP 144/78
--- NOTE | 2019-05-20 04:05 | NUR ---
RESTED WELL THIS SHIFT WITH NO COMPLAINTS. ABLE TO VOICE ALL NEEDS.
[2019-05-20 04:48] LABS: BASOPHILS 0.2 % (0-2); HEMATOCRIT 24.8 % (42.0-54.0); HEMOGLOBIN 7.9 g/dL (13.5-17.5); IMMATURE GRANULOCYTES 1.7 % (0-5); LYMPHOCYTES 21.8 % (15-50); MCH 27.6 pg (26.0-34.0); MCHC 31.9 g/dL (31.0-37.0); MCV 86.7 fL (80.0-100.0); MEAN PLATELET VOLUME 10.5 fL (7.4-10.4); MONOCYTES 11.6 % (2-11); NEUTROPHILS 60.7 % (40-80); PLATELET COUNT 194 10x3/uL (130-400); RBC 2.86 10x6/uL (4.20-6.10); RDW 15.6 % (11.5-14.5)
[2019-05-20 05:17] LABS: ALBUMIN 2.5 g/dL (3.4-5.0); ANION GAP 12.8 mmol/L (8-16); BILIRUBIN - TOTAL 0.5 mg/dL (0.2-1.3); CALCIUM 7.7 mg/dL (8.5-10.1); CARBON DIOXIDE 24.8 mmol/L (21.0-32.0); CREATININE - SERUM 1.5 mg/dL (0.6-1.3); POTASSIUM - SERUM 3.6 mmol/L (3.5-5.1); PROTEIN - SERUM 6.8 g/dL (6.4-8.2)
--- NOTE | 2019-05-20 05:24 | NUR ---
REFUSED PROTONIX STATED HE DOESN'T HAVE INDIGESTION AND WILL NOT BE HAVING INDIGESTION TODAY, THIS NURSE ATTEMPTED TO EDUCATE IMPORTANCE OF MEDICATION BUT PT STATED HES FINE AND JUST NEEDS A PAIN PILL TO GET HIS DAY STARTED. MEDICATION ADMINISTERED PER ORDERS. WILL NOTE ANY CHANGE.
[2019-05-20 08:46] VITALS: BP 152/79
[2019-05-20 13:23] VITALS: BP 108/67
--- NOTE | 2019-05-20 14:31 | NUR ---
MEDICATED WITH NORCO AT THIS TIME FOR C/O KNEE PAIN. C/L IN REACH AT BEDSIDE
--- NOTE | 2019-05-20 16:56 | NUR ---
Rehab Note- Continue to await determination for PreAuth for inpatient acute rehab stay. Clinicals have been faxed for review. Have spoken w/ ADRIAN Vazquez. Allyson Cartagena RN Clinical Liaison, [facility] Rehab
--- NOTE | 2019-05-20 19:40 | NUR ---
LYING IN BED WATCHING TELEVISION, PLEASANT MOOD, SALINE LOC TO RIGHT AC. ABLE TO VOICE ALL NEEDS, DENIES ANY NEEDS AT THIS TIME. WILL NOTE CHANGE.
--- NOTE | 2019-05-21 00:46 | NUR ---
REQUESTED PAIN MEDICATION FOR PAIN LEVEL 9/10, MEDICATION GIVEN PER ORDERS. WILL NOTE ANY CHANGE.
[2019-05-21 00:58] VITALS: BP 158/66
--- NOTE | 2019-05-21 04:45 | NUR ---
I have reviewed this patient and I concur with the Shift Assessment completed by the Licensed Practical Nurse today this shift.
[2019-05-21 04:54] VITALS: BP 131/59
[2019-05-21 05:21] LABS: BASOPHILS 0.2 % (0-2); EOSINOPHILS 2.3 % (0-7); HEMATOCRIT 25.5 % (42.0-54.0); HEMOGLOBIN 8.2 g/dL (13.5-17.5); IMMATURE GRANULOCYTES 1.7 % (0-5); LYMPHOCYTES 18.9 % (15-50); MCH 27.8 pg (26.0-34.0); MCHC 32.2 g/dL (31.0-37.0); MCV 86.4 fL (80.0-100.0); MEAN PLATELET VOLUME 10.7 fL (7.4-10.4); MONOCYTES 9.5 % (2-11); NEUTROPHILS 67.4 % (40-80); PLATELET COUNT 198 10x3/uL (130-400); RBC 2.95 10x6/uL (4.20-6.10)
--- NOTE | 2019-05-21 05:26 | NUR ---
REFUSED MORNING PROTONIX, STATED HE DIDN'T NEED IT BECAUSE HE WAS NOT GOING TO GET INDIGESTION. WILL NOTE ANY CHANGE.
[2019-05-21 05:37] LABS: ALBUMIN 2.5 g/dL (3.4-5.0); ANION GAP 12.1 mmol/L (8-16); BILIRUBIN - TOTAL 0.47 mg/dL (0.2-1.3); CALCIUM 7.9 mg/dL (8.5-10.1); CARBON DIOXIDE 25.6 mmol/L (21.0-32.0); CREATININE - SERUM 1.4 mg/dL (0.6-1.3); POTASSIUM - SERUM 3.7 mmol/L (3.5-5.1)
[2019-05-21 05:47] LABS: WBC 10.3 10x3/uL (4.8-10.8)
[2019-05-21 08:58] VITALS: BP 142/79
--- NOTE | 2019-05-21 10:32 | NUR ---
Recieved a voice mail this AM from Alessandra at [facility]. This patient has been denied by the medical management trainer for [facility]. If the physician disagrees a peer to peer can be done before 3:00 PM 05/22/19 by calling Alessandra at [phone] with the physician's name and contact information. Relayed this information to the CM Taylor Baeza. Dulce Aguillon RN Clinical Liaison, Rehab
[2019-05-21 12:49] VITALS: BP 140/74
--- NOTE | 2019-05-21 13:33 | MORECARE ---
CASE MANAGEMENT DISCHARGE SUMMARY PATIENT: ABHIJEET MARCIAL UNIT: [id number] ADM DATE: 05/13/19 AGE: 58 : 62 SEX: M ROOM/BED: D.2215 AUTHOR: SRUTHI,TAYLOR PHYSICIAN: REFERRING PHYSICIAN: JUNE ALMEIDA DO DATE OF SERVICE: 05/21/19 Discharge Plan Patient Name: ABHIJEET MARCIAL Facility: [facility]:[place] : 1960 Planned Disposition: Home Anticipated Discharge Date: Discharge Date: Expected LOS: Initial Reviewer: [email or web address] Initial Review Date: 05/13/2019 Generated: 05/21/19 2:32 pm Comments DCP- Discharge Planning Updated by [id number]: Anita Baeza on 05/21/19 12:[address] Received a denial for inpatient rehab, spoke with Dr Almeida and he would like to do a Peer to Peer. I called Alessandra at [phone] to set up the P2P. I will wait and see the verdict. DCP- Discharge Planning Updated by [id number]: Jada Villarreal on 05/17/19 12:[address] [facility] IS FOLLOWING THIS PATIENT. PHYSICAL THERAPY EVAL HAS BEEN COMPLETED. THE OT EVAL WILL LIKELY BE DONE ON SUNDAY. THE PRODUCTION HONING MACHINE OPERATOR WILL FORWARD APPROPRIATE CLINICAL W/ PT AND OT EVAL TO THE PATIENT'S MANAGED MEDICARE INSURER FOR AUTHORIZATION WHEN OT EVAL COMPLETE. LIKELY WILL SUBMIT TO [facility] MEDICARE [facility]UTIONS ON SUNDAY. DCP- Discharge Planning Updated by [id number]: Anita Baeza on 05/15/19 2:[address] Patient Name: ABHIJEET MARCIAL Admission Status: Elective Accout number: [id number] Admission Date: 05-13-2019 : 1960 Admission Diagnosis:UNILATERAL PRIMARY OSTEOARTHRITIS, RIGHT KNEE Attending: JUNE ALMEIDA Current LOS: 2 Anticipated DC Date: Planned Disposition: Home Primary Insurance: [facility] MEDICARE SOLUTIONS Discharge Planning Comments: CM met with patient to complete initial dc planning assessment. CM educated patient on the CM role and verbal consent given by patient to complete assessment. Patient lives at home independently, he lives alone. At discharge patient plans to return home and feels this is a safe discharge. He stated that his son will be his one to drive him home and also take him to and from OP PT at [facility]. CM discussed availability of home health, rehab services, and medical equipment. He has a walker x2 CPM and Ice Machine that was set up by Dr Levy office. I have set up his OP PT appointment for SundayMay 20 @ 9:45am . A copy of the order will be sent home with the patient in his DC packet. IMM served and explained to patient. Patient denied known discharge needs at this time. CM will continue to follow and will assist as needed with dc plans/needs. Finished Cloth Examiner: Anita Baeza DCPIA - Discharge Planning Initial Assessment Updated by [id number]: Anita Baeza on 05/15/19 3:06 pm * Is the patient Alert and Oriented? Yes * How many steps to enter\exit or inside your home? 10-14 * PCP FARO * Pharmacy [facility] * Preadmission Environment Home Alone * ADLs Independent * Equipment Rolling Walker Walker * Other Equipment CPM ICE MACHINE * List name and contact numbers for known caregivers / representatives who currently or will assist patient after discharge: KATARZYNA MARCIAL [phone] * Verbal permission to speak to the caregivers and representatives has been obtained from the patient. N/A * Community resources currently utilized None * Additional services required to return to the preadmission environment? Yes * Can the patient safely return to the preadmission environment? Yes * Has this patient been hospitalized within the prior 30 days at any hospital? No Coverage Notice Reviewer: [id number] - Anita Baeza Notice Issued Date-Time: 05/15/2019 14:15 Notice Type: IM Discharge Notice Notice Delivered To: Patient Relationship to Patient: Wrapper Stemmer Hand Name: Delivery Method: HAND - Hand Delivered Jahaira Days: Prior Verbal Notification: Recipient Understood Notice: Yes Recipient Signature: Yes Med Rec Note Co-signed by Attending: Coverage Notice Comment: Last DP export: 05/17/19 1:01 p Patient Name: ABHIJEET MARCIAL Page [phone] at 1333 All edits/amendments must be made on the electronic document DICTATION DATE: 05/21/19 1332 POWER EQUIPMENT TECHNOLOGY INSTRUCTOR: BECK 05/21/19 1332 RPT#: [id number] DC DATE: STATUS: ADM IN [facility] [address] [place] [address] END OF REPORT
--- NOTE | 2019-05-21 20:30 | NUR ---
PATIENT UP AMBULATING IN HALLWAY WITH WALKER. STATES NEEDS NEW DRESSING TO RIGHT KNEE. " TOOK SHOWER AND DRESSING IS FALLING OFF". DRESSING NOTED TO BE LOOSE AND WATER SOAKED. DRESSING CHANGED PER REQUEST. CLIPS INTACT TO RIGHT KNEE INCISION WITHOUT DRAINAGE NOTED. SL TO RAC WITHOUT REDNESS OR EDEMA NOTED. CL IN REACH
[2019-05-21 20:49] VITALS: BP 158/75
[2019-05-22 00:39] VITALS: BP 130/73
[2019-05-22 04:54] VITALS: BP 137/75
[2019-05-22 05:31] LABS: BASOPHILS 0.2 % (0-2); EOSINOPHILS 2.5 % (0-7); HEMATOCRIT 25.6 % (42.0-54.0); HEMOGLOBIN 8.5 g/dL (13.5-17.5); IMMATURE GRANULOCYTES 1.8 % (0-5); LYMPHOCYTES 18.2 % (15-50); MCH 28.6 pg (26.0-34.0); MCHC 33.2 g/dL (31.0-37.0); MCV 86.2 fL (80.0-100.0); MEAN PLATELET VOLUME 10.6 fL (7.4-10.4); MONOCYTES 10.5 % (2-11); NEUTROPHILS 66.8 % (40-80); PLATELET COUNT 218 10x3/uL (130-400); RBC 2.97 10x6/uL (4.20-6.10); RDW 15.7 % (11.5-14.5); WBC 8.9 10x3/uL (4.8-10.8)
[2019-05-22 06:04] LABS: ALBUMIN 2.5 g/dL (3.4-5.0); BILIRUBIN - TOTAL 0.48 mg/dL (0.2-1.3); CALCIUM 7.9 mg/dL (8.5-10.1); CARBON DIOXIDE 25.7 mmol/L (21.0-32.0); CREATININE - SERUM 1.5 mg/dL (0.6-1.3); POTASSIUM - SERUM 3.7 mmol/L (3.5-5.1); PROTEIN - SERUM 7.1 g/dL (6.4-8.2)
[2019-05-22 08:22] VITALS: BP 126/71
--- NOTE | 2019-05-22 08:53 | MORECARE ---
CASE MANAGEMENT DISCHARGE SUMMARY PATIENT: ABHIJEET MARCIAL UNIT: [id number] ADM DATE: 05/13/19 AGE: 58 : 62 SEX: M ROOM/BED: D.2215 AUTHOR: SRUTHI,DOC PHYSICIAN: REFERRING PHYSICIAN: JUNE ALMEIDA DO DATE OF SERVICE: 05/22/19 Discharge Plan Patient Name: ABHIJEET MARCIAL Facility: [facility]:[place] : 1960 Planned Disposition: Home Anticipated Discharge Date: Discharge Date: Expected LOS: Initial Reviewer: [email or web address] Initial Review Date: 05/13/2019 Generated: 05/22/19 9:53 am Comments DCP- Discharge Planning Updated by [email or web address]: Anita Baeza on 05/22/19 7:[address] P2P WAS DONE BY DR ALMEIDA FOR [facility] & DENIAL WAS UPHEALD. SPOKE WITH PATIENT ABOUT CHOOSING A SKILLED FACILITY AND HE WOULD LIKE TO GO TO [facility] SIGNED AND PLACED IN CHART. IMM SERVED AND EXPLAINED AND I WILL SEND REFERRAL TO [facility] DCP- Discharge Planning Updated by [id number]: Anita Baeza on 05/21/19 12:[address] Received a denial for inpatient rehab, spoke with Dr Almeida and he would like to do a Peer to Peer. I called Alessandra at [phone] to set up the P2P. I will wait and see the verdict. DCP- Discharge Planning Updated by [email or web address]: Jada Villarreal on 05/17/19 12:[address] [facility] IS FOLLOWING THIS PATIENT. PHYSICAL THERAPY EVAL HAS BEEN COMPLETED. THE OT EVAL WILL LIKELY BE DONE ON SUNDAY. THE FENDER REPAIRER WILL FORWARD APPROPRIATE CLINICAL W/ PT AND OT EVAL TO THE PATIENT'S MANAGED MEDICARE INSURER FOR AUTHORIZATION WHEN OT EVAL COMPLETE. LIKELY WILL SUBMIT TO [facility] MEDIC[facility] ON SUNDAY. DCP- Discharge Planning Updated by [id number]: Anita Baeza on 05/15/19 2:[address] Patient Name: ABHIJEET MARCIAL Admission Status: Elective Accout number: [id number] Admission Date: 05-13-2019 : 1960 Admission Diagnosis:UNILATERAL PRIMARY OSTEOARTHRITIS, RIGHT KNEE Attending: JUNE ALMEIDA Current LOS: 2 Anticipated DC Date: Planned Disposition: Home Primary Insurance: [facility] MEDICARE SOLUTIONS Discharge Planning Comments: CM met with patient to complete initial dc planning assessment. CM educated patient on the CM role and verbal consent given by patient to complete assessment. Patient lives at home independently, he lives alone. At discharge patient plans to return home and feels this is a safe discharge. He stated that his son will be his one to drive him home and also take him to and from OP PT at [facility]. CM discussed availability of home health, rehab services, and medical equipment. He has a walker x2 CPM and Ice Machine that was set up by Dr Levy office. I have set up his OP PT appointment for SundayMay 20 @ 9:45am . A copy of the order will be sent home with the patient in his DC packet. IMM served and explained to patient. Patient denied known discharge needs at this time. CM will continue to follow and will assist as needed with dc plans/needs. Tissue Coordinator: Anita Baeza DCPIA - Discharge Planning Initial Assessment Updated by [email or web address]: Anita Baeza on 05/15/19 3:06 pm * Is the patient Alert and Oriented? Yes * How many steps to enter\exit or inside your home? 10-14 * PCP RIDGE * Pharmacy [facility] * Preadmission Environment Home Alone * ADLs Independent * Equipment Rolling Walker Walker * Other Equipment CPM ICE MACHINE * List name and contact numbers for known caregivers / representatives who currently or will assist patient after discharge: KATARZYNA MARCIAL [phone] * Verbal permission to speak to the caregivers and representatives has been obtained from the patient. N/A * Community resources currently utilized None * Additional services required to return to the preadmission environment? Yes * Can the patient safely return to the preadmission environment? Yes * Has this patient been hospitalized within the prior 30 days at any hospital? No External Providers External Provider: [facility] Next Contact Date: Service Request Date: Service Type: Resolution: Reviewer: Comments: Coverage Notice Reviewer: [id number] - Anita Baeza Notice Issued Date-Time: 05/15/2019 14:15 Notice Type: IM Discharge Notice Notice Delivered To: Patient Relationship to Patient: Automatic Beading Lathe Operator Name: Delivery Method: HAND - Hand Delivered Jahaira Days: Prior Verbal Notification: Recipient Understood Notice: Yes Recipient Signature: Yes Med Rec Note Co-signed by Attending: Coverage Notice Comment: Reviewer: [id number] Rachel Baeza Notice Issued Date-Time: 05/22/2019 8:40 Notice Type: IM Discharge Notice Notice Delivered To: Patient Relationship to Patient: Automatic Beading Lathe Operator Name: Delivery Method: HAND - Hand Delivered Jahaira Days: Prior Verbal Notification: Recipient Understood Notice: Yes Recipient Signature: Yes Med Rec Note Co-signed by Attending: Coverage Notice Comment: Last DP export: 05/21/19 12:33 p Patient Name: ABHIJEET MARCIAL Page 40837 at 0853 All edits/amendments must be made on the electronic document DICTATION DATE: 05/22/1952 REHABILITATION CASEWORKER: BECK 05/22/19 0852 RPT#: [id number] DC DATE: STATUS: ADM IN [address] [place] [address] END OF REPORT
--- NOTE | 2019-05-22 11:41 | MORECARE ---
CASE MANAGEMENT DISCHARGE SUMMARY PATIENT: ABHIJEET MARCIAL UNIT: [id number] ADM DATE: 05/13/19 AGE: 58 : 62 SEX: M ROOM/BED: D.2215 AUTHOR: SRUTHI,DOC PHYSICIAN: REFERRING PHYSICIAN: JUNE ALMEIDA DO DATE OF SERVICE: 05/22/19 Discharge Plan Patient Name: ABHIJEET MARCIAL Facility: [facility]:[place] : 1960 Planned Disposition: Home Anticipated Discharge Date: Discharge Date: Expected LOS: Initial Reviewer: [id number] Initial Review Date: 05/13/2019 Generated: 05/22/19 12:41 pm Comments DCP- Discharge Planning Updated by [email or web address]: Anita Baeza on 05/22/19 7:[address] P2P WAS DONE BY DR [facility] & DENIAL WAS UPHEALD. SPOKE WITH PATIENT ABOUT CHOOSING A SKILLED FACILITY AND HE WOULD LIKE TO GO TO [facility] SIGNED AND PLACED IN CHART. IMM SERVED AND EXPLAINED AND I WILL SEND REFERRAL TO [facility] DCP- Discharge Planning Updated by [email or web address]: Anita Baeza on 05/21/19 12:[address] Received a denial for inpatient rehab, spoke with Dr Almeida and he would like to do a Peer to Peer. I called Alessandra at [phone] to set up the P2P. I will wait and see the verdict. DCP- Discharge Planning Updated by [id number]: Jada Villarreal on 05/17/19 12:[address] [facility] IS FOLLOWING THIS PATIENT. PHYSICAL THERAPY EVAL HAS BEEN COMPLETED. THE OT EVAL WILL LIKELY BE DONE ON SUNDAY. THE PLUMBER CUB WILL FORWARD APPROPRIATE CLINICAL W/ PT AND OT EVAL TO THE PATIENT'S MANAGED MEDICARE INSURER FOR AUTHORIZATION WHEN OT EVAL COMPLETE. LIKELY WILL SUBMIT TO [facility]IC[facility]UT[facility] ON SUNDAY. DCP- Discharge Planning Updated by [id number]: Anita Baeza on 05/15/19 2:[address] Patient Name: ABHIJEET MARCIAL Admission Status: Elective Accout number: [id number] Admission Date: 05-13-2019 : 1960 Admission Diagnosis:UNILATERAL PRIMARY OSTEOARTHRITIS, RIGHT KNEE Attending: JUNE ALMEIDA Current LOS: 2 Anticipated DC Date: Planned Disposition: Home Primary Insurance: [facility] MEDICARE SOLUTIONS Discharge Planning Comments: CM met with patient to complete initial dc planning assessment. CM educated patient on the CM role and verbal consent given by patient to complete assessment. Patient lives at home independently, he lives alone. At discharge patient plans to return home and feels this is a safe discharge. He stated that his son will be his one to drive him home and also take him to and from OP PT at [facility]. CM discussed availability of home health, rehab services, and medical equipment. He has a walker x2 CPM and Ice Machine that was set up by Dr Levy office. I have set up his OP PT appointment for SundayMay 20 @ 9:45am . A copy of the order will be sent home with the patient in his DC packet. IMM served and explained to patient. Patient denied known discharge needs at this time. CM will continue to follow and will assist as needed with dc plans/needs. Oyster Buyer: Anita Baeza DCPIA - Discharge Planning Initial Assessment Updated by [email or web address]: Anita Baeza on 05/15/19 3:06 pm * Is the patient Alert and Oriented? Yes * How many steps to enter\exit or inside your home? 10-14 * PCP RIDGE * Pharmacy [facility] * Preadmission Environment Home Alone * ADLs Independent * Equipment Rolling Walker Walker * Other Equipment CPM ICE MACHINE * List name and contact numbers for known caregivers / representatives who currently or will assist patient after discharge: KATARZYNA MARCIAL [phone] * Verbal permission to speak to the caregivers and representatives has been obtained from the patient. N/A * Community resources currently utilized None * Additional services required to return to the preadmission environment? Yes * Can the patient safely return to the preadmission environment? Yes * Has this patient been hospitalized within the prior 30 days at any hospital? No External Providers External Provider: DEBO Chan Next Contact Date: Service Request Date: Service Type: Resolution: Reviewer: Comments: Coverage Notice Reviewer: [id number] - Anita Baeza Notice Issued Date-Time: 05/15/2019 14:15 Notice Type: IM Discharge Notice Notice Delivered To: Patient Relationship to Patient: Herbicide Service Sales Representative Name: Delivery Method: HAND - Hand Delivered Jahaira Days: Prior Verbal Notification: Recipient Understood Notice: Yes Recipient Signature: Yes Med Rec Note Co-signed by Attending: Coverage Notice Comment: Reviewer: LICHA Baeza Notice Issued Date-Time: 05/22/2019 8:40 Notice Type: IM Discharge Notice Notice Delivered To: Patient Relationship to Patient: Herbicide Service Sales Representative Name: Delivery Method: HAND - Hand Delivered Jahaira Days: Prior Verbal Notification: Recipient Understood Notice: Yes Recipient Signature: Yes Med Rec Note Co-signed by Attending: Coverage Notice Comment: Reviewer: LICHA aBeza Notice Issued Date-Time: 05/22/2019 8:40 Notice Type: Patient Choice Letter Notice Delivered To: Patient Relationship to Patient: Herbicide Service Sales Representative Name: Delivery Method: - Jahaira Days: Prior Verbal Notification: Recipient Understood Notice: Yes Recipient Signature: Yes Med Rec Note Co-signed by Attending: Coverage Notice Comment: [facility] DP export: 05/22/19 7:53 a Patient Name: ABHIJEET MARCIAL Page [phone] at 1141 All edits/amendments must be made on the electronic document DICTATION DATE: 05/22/19 1141 MANAGER VIDEO: BECK 05/22/19 1141 RPT#: [id number] DC DATE: STATUS: ADM IN [facility] [address] [place] [address] END OF REPORT
--- NOTE | 2019-05-22 11:49 | MORECARE ---
CASE MANAGEMENT DISCHARGE SUMMARY PATIENT: ABHIJEET MARCIAL UNIT: [id number] ADM DATE: 05/13/19 AGE: 58 : 62 SEX: M ROOM/BED: D.2215 AUTHOR: SRUTHI,DOC PHYSICIAN: REFERRING PHYSICIAN: JUNE ALMEIDA DO DATE OF SERVICE: 05/22/19 Discharge Plan Patient Name: ABHIJEET MARCIAL [facility] : 1960 Planned Disposition: Home Anticipated Discharge Date: Discharge Date: Expected LOS: Initial Reviewer: [email or web address] Initial Review Date: 05/13/2019 Generated: 05/22/19 12:48 pm Comments DCP- Discharge Planning Updated by [email or web address]: Anita Baeza on 05/22/19 10:[address] RECEIVED AUTH FROM [facility], THEY WILL ACCEPT PATIENT ONCE [facility] IS BACK DCP- Discharge Planning Updated by [email or web address]: Anita Baeza on 05/22/19 7:[address] [facility] DENIAL WAS UPHEALD. SPOKE WITH PATIENT ABOUT CHOOSING A SKILLED FACILITY AND HE WOULD LIKE TO GO TO [facility], [place] SIGNED AND PLACED IN CHART. IMM SERVED AND EXPLAINED AND I WILL SEND REFERRAL TO [facility] DCP- Discharge Planning Updated by [id number]: Anita Baeza on 05/21/19 12:[address] Received a denial for inpatient rehab, spoke with Dr Almeida and he would like to do a Peer to Peer. I called Alessandra at [phone] to set up the P2P. I will wait and see the verdict. DCP- Discharge Planning Updated by [id number]: Jada Villarreal on 05/17/19 12:[address] [facility] IS FOLLOWING THIS PATIENT. PHYSICAL THERAPY EVAL HAS BEEN COMPLETED. THE OT EVAL WILL LIKELY BE DONE ON SUNDAY. THE GAS STATION MANAGER WILL FORWARD APPROPRIATE CLINICAL W/ PT AND OT EVAL TO THE PATIENT'S MANAGED MEDICARE INSURER FOR AUTHORIZATION WHEN OT EVAL COMPLETE. LIKELY WILL SUBMIT TO [facility] MEDICARE SOLUTIONS ON SUNDAY. DCP- Discharge Planning Updated by [id number]: Anita Baeza on 05/15/19 2:[address] Patient Name: ABHIJEET MARCIAL Admission Status: Elective Accout number: [id number] Admission Date: 05-13-2019 : 1960 Admission Diagnosis:UNILATERAL PRIMARY OSTEOARTHRITIS, RIGHT KNEE Attending: JUNE ALMEIDA Current LOS: 2 Anticipated DC Date: Planned Disposition: Home Primary Insurance: [facility] MEDICARE SOLUTIONS Discharge Planning Comments: CM met with patient to complete initial dc planning assessment. CM educated patient on the CM role and verbal consent given by patient to complete assessment. Patient lives at home independently, he lives alone. At discharge patient plans to return home and feels this is a safe discharge. He stated that his son will be his one to drive him home and also take him to and from OP PT at [facility]. CM discussed availability of home health, rehab services, and medical equipment. He has a walker x2 CPM and Ice Machine that was set up by Dr Levy office. I have set up his OP PT appointment for SundayMay 20 @ 9:45am . A copy of the order will be sent home with the patient in his DC packet. IMM served and explained to patient. Patient denied known discharge needs at this time. CM will continue to follow and will assist as needed with dc plans/needs. Manager College: Anita Baeza DCPIA - Discharge Planning Initial Assessment Updated by [email or web address]: Anita Baeza on 05/15/19 3:06 pm * Is the patient Alert and Oriented? Yes * How many steps to enter\exit or inside your home? 10-14 * PCP RIDGE * Pharmacy [facility] * Preadmission Environment Home Alone * ADLs Independent * Equipment Rolling Walker Walker * Other Equipment CPM ICE MACHINE * List name and contact numbers for known caregivers / representatives who currently or will assist patient after discharge: KATARZYNA MARCIAL [phone] * Verbal permission to speak to the caregivers and representatives has been obtained from the patient. N/A * Community resources currently utilized None * Additional services required to return to the preadmission environment? Yes * Can the patient safely return to the preadmission environment? Yes * Has this patient been hospitalized within the prior 30 days at any hospital? No Coverage Notice Reviewer: [id number] - Anita Baeza Notice Issued Date-Time: 05/15/2019 14:15 Notice Type: IM Discharge Notice Notice Delivered To: Patient Relationship to Patient: Transit Bus Operator Name: Delivery Method: HAND - Hand Delivered Jahaira Days: Prior Verbal Notification: Recipient Understood Notice: Yes Recipient Signature: Yes Med Rec Note Co-signed by Attending: Coverage Notice Comment: Reviewer: LICHA Baeza Notice Issued Date-Time: 05/22/2019 8:40 Notice Type: IM Discharge Notice Notice Delivered To: Patient Relationship to Patient: Transit Bus Operator Name: Delivery Method: HAND - Hand Delivered Jahaira Days: Prior Verbal Notification: Recipient Understood Notice: Yes Recipient Signature: Yes Med Rec Note Co-signed by Attending: Coverage Notice Comment: Reviewer: [id number] Baeza Notice Issued Date-Time: 05/22/2019 8:40 Notice Type: Patient Choice Letter Notice Delivered To: Patient Relationship to Patient: Transit Bus Operator Name: Delivery Method: - Jahaira Days: Prior Verbal Notification: Recipient Understood Notice: Yes Recipient Signature: Yes Med Rec Note Co-signed by Attending: Coverage Notice Comment: [facility] DP export: 05/22/19 10:41 a Patient Name: ABHIJEET MARCIAL Page 43924 at 1149 All edits/amendments must be made on the electronic document DICTATION DATE: 05/22/191147 HAND ETCHER HELPER: BECK 05/22/19 114 RPT#: [id number] DC DATE: STATUS: ADM IN [facility] [address] [place] [address] END OF REPORT
[2019-05-22] MEDS ORDERED: BAYER CHEWABLE81 MG PO (13:00)
[2019-05-22] MEDS ORDERED: HYDROCODON-ACE1 EAC7 PO (13:00)
[2019-05-22 13:15] VITALS: BP 97/54
--- NOTE | 2019-05-22 15:08 | MORECARE ---
CASE MANAGEMENT DISCHARGE SUMMARY PATIENT: ABHIJEET MARCIAL UNIT: [id number] ADM DATE: 05/13/19 AGE: 58 : 62 SEX: M ROOM/BED: D.2215 AUTHOR: SRUTHI,DOC PHYSICIAN: REFERRING PHYSICIAN: JUNE ALMEIDA DO DATE OF SERVICE: 05/22/19 Discharge Plan Patient Name: ABHIJEET MARCIAL Facility: [facility]:[place] : 1960 Planned Disposition: Home Anticipated Discharge Date: Discharge Date: Expected LOS: Initial Reviewer: [id number] Initial Review Date: 05/13/2019 Generated: 05/22/19 4:08 pm Comments DCP- Discharge Planning Updated by [email or web address]: Anita Baeza on 05/22/19 2:[address] PATIENT WILL BE DISCHARGING TO [facility] TO A SKILLED BED THEY WILL PICK HIM UP 3:30. CM TO FOLLOW AND ASSIST WITH DC PLANNING DCP- Discharge Planning Updated by [email or web address]: Anita Baeza on 05/22/19 10:[address] RECEIVED AUTH FROM [facility], THEY WILL ACCEPT PATIENT ONCE QAMAR IS BACK DCP- Discharge Planning Updated by [email or web address]: Anita Baeza on 05/22/19 7:[address] P2P WAS DONE BY DR ALMEIDA FOR INPATIETN REHAB & DENIAL WAS UPHEALD. SPOKE WITH PATIENT ABOUT CHOOSING A SKILLED FACILITY AND HE WOULD LIKE TO GO TO [facility], CRYSTAL SIGNED AND PLACED IN CHART. IMM SERVED AND EXPLAINED AND I WILL SEND REFERRAL TO [facility] DCP- Discharge Planning Updated by [id number]: Anita Baeza on 05/21/19 12:[address] Received a denial for inpatient rehab, spoke with Dr Almeida and he would like to do a Peer to Peer. I called Alessandra at [phone] to set up the P2P. I will wait and see the verdict. DCP- Discharge Planning Updated by [id number]: Jada Villarreal on 05/17/19 12:[address] [facility] IS FOLLOWING THIS PATIENT. PHYSICAL THERAPY EVAL HAS BEEN COMPLETED. THE OT EVAL WILL LIKELY BE DONE ON SUNDAY. THE METHOD CONSULTANT WILL FORWARD APPROPRIATE CLINICAL W/ PT AND OT EVAL TO THE PATIENT'S MANAGED MEDICARE INSURER FOR AUTHORIZATION WHEN OT EVAL COMPLETE. LIKELY WILL SUBMIT TO [facility] MEDICARE SOLUTIONS ON SUNDAY. DCP- Discharge Planning Updated by [id number]: Anita Baeza on 05/15/19 2:[address] Patient Name: ABHIJEET MARCIAL Admission Status: Elective Accout number: [id number] Admission Date: 05-13-2019 : 1960 Admission Diagnosis:UNILATERAL PRIMARY OSTEOARTHRITIS, RIGHT KNEE Attending: JUNE ALMEIDA Current LOS: 2 Anticipated DC Date: Planned Disposition: Home Primary Insurance: [facility] MEDICARE SOLUTIONS Discharge Planning Comments: CM met with patient to complete initial dc planning assessment. CM educated patient on the CM role and verbal consent given by patient to complete assessment. Patient lives at home independently, he lives alone. At discharge patient plans to return home and feels this is a safe discharge. He stated that his son will be his one to drive him home and also take him to and from OP PT at [facility]. CM discussed availability of home health, rehab services, and medical equipment. He has a walker x2 CPM and Ice Machine that was set up by Dr Levy office. I have set up his OP PT appointment for SundayMay 20 @ 9:45am . A copy of the order will be sent home with the patient in his DC packet. IMM served and explained to patient. Patient denied known discharge needs at this time. CM will continue to follow and will assist as needed with dc plans/needs. Stadium Manager: Anita Baeza DCPIA - Discharge Planning Initial Assessment Updated by [id number]: Anita Baeza on 05/15/19 3:06 pm * Is the patient Alert and Oriented? Yes * How many steps to enter\exit or inside your home? 10-14 * PCP FARO * Pharmacy [facility] * Preadmission Environment Home Alone * ADLs Independent * Equipment Rolling Walker Walker * Other Equipment CPM ICE MACHINE * List name and contact numbers for known caregivers / representatives who currently or will assist patient after discharge: KATARZYNA MARCIAL [phone] * Verbal permission to speak to the caregivers and representatives has been obtained from the patient. N/A * Community resources currently utilized None * Additional services required to return to the preadmission environment? Yes * Can the patient safely return to the preadmission environment? Yes * Has this patient been hospitalized within the prior 30 days at any hospital? No Coverage Notice Reviewer: LICHA Baeza Notice Issued Date-Time: 05/15/2019 14:15 Notice Type: IM Discharge Notice Notice Delivered To: Patient Relationship to Patient: Flarer Name: Delivery Method: HAND - Hand Delivered Jahaira Days: Prior Verbal Notification: Recipient Understood Notice: Yes Recipient Signature: Yes Med Rec Note Co-signed by Attending: Coverage Notice Comment: Reviewer: LICHA Baeza Notice Issued Date-Time: 05/22/2019 8:40 Notice Type: IM Discharge Notice Notice Delivered To: Patient Relationship to Patient: Flarer Name: Delivery Method: HAND - Hand Delivered Jahaira Days: Prior Verbal Notification: Recipient Understood Notice: Yes Recipient Signature: Yes Med Rec Note Co-signed by Attending: Coverage Notice Comment: Reviewer: LICHA Baeza Notice Issued Date-Time: 05/22/2019 8:40 Notice Type: Patient Choice Letter Notice Delivered To: Patient Relationship to Patient: Flarer Name: Delivery Method: - Jahaira Days: Prior Verbal Notification: Recipient Understood Notice: Yes Recipient Signature: Yes Med Rec Note Co-signed by Attending: Coverage Notice Comment: [facility] Last DP export: 05/22/19 10:49 a Patient Name: ABHIJEET MARCIAL Page [phone] at 1508 All edits/amendments must be made on the electronic document DICTATION DATE: 05/22/19 1508 CHECKING DEPARTMENT SUPERVISOR: BECK 05/22/19 1508 RPT#: [id number] DC DATE: STATUS: ADM IN [facility] [address] [place] [address] END OF REPORT
--- NOTE | 2019-05-22 15:18 | MORECARE ---
CASE MANAGEMENT DISCHARGE SUMMARY PATIENT: ABHIJEET MARCIAL UNIT: [id number] ADM DATE: 05/13/19 AGE: 58 : 62 SEX: M ROOM/BED: D.2215 AUTHOR: SRUTHI,DOC PHYSICIAN: REFERRING PHYSICIAN: JUNE ALMEIDA DO DATE OF SERVICE: 05/22/19 Discharge Plan Patient Name: ABHIJEET MARCIAL Facility: [facility]:[place] : 1960 Planned Disposition: Home Anticipated Discharge Date: Discharge Date: Expected LOS: Initial Reviewer: [email or web address] Initial Review Date: 05/13/2019 Generated: 05/22/19 4:18 pm Comments DCP- Discharge Planning Updated by [email or web address]: Ainta Baeza on 05/22/19 2:[address] PATIENT WILL BE DISCHARGING TO [facility] TO A SKILLED BED THEY WILL PICK HIM UP 3:30. CM TO FOLLOW AND ASSIST WITH DC PLANNING DCP- Discharge Planning Updated by [email or web address]: Anita Baeza on 05/22/19 10:[address] RECEIVED AUTH FROM [facility], THEY WILL ACCEPT PATIENT ONCE QAMAR IS BACK DCP- Discharge Planning Updated by [email or web address]: Anita Baeza on 05/22/19 7:[address] P2P WAS DONE BY DR ALMEIDA FOR INPATIETN REHAB & DENIAL WAS UPHEALD. SPOKE WITH PATIENT ABOUT CHOOSING A SKILLED FACILITY AND HE WOULD LIKE TO GO TO [facility], CRYSTAL SIGNED AND PLACED IN CHART. IMM SERVED AND EXPLAINED AND I WILL SEND REFERRAL TO [facility] DCP- Discharge Planning Updated by [email or web address]: Anita Baeza on 05/21/19 12:[address] Received a denial for inpatient rehab, spoke with Dr Almeida and he would like to do a Peer to Peer. I called Alessandra at [phone] to set up the P2P. I will wait and see the verdict. DCP- Discharge Planning Updated by [id number]: Jada Villarreal on 05/17/19 12:[address] [facility] IS FOLLOWING THIS PATIENT. PHYSICAL THERAPY EVAL HAS BEEN COMPLETED. THE OT EVAL WILL LIKELY BE DONE ON SUNDAY. THE METAL CABINET FINISHER WILL FORWARD APPROPRIATE CLINICAL W/ PT AND OT EVAL TO THE PATIENT'S MANAGED MEDICARE INSURER FOR AUTHORIZATION WHEN OT EVAL COMPLETE. LIKELY WILL SUBMIT TO [facility] MEDICARE SOLUTIONS ON SUNDAY. DCP- Discharge Planning Updated by [id number]: Anita Baeza on 05/15/19 2:[address] Patient Name: ABHIJEET MARCIAL Admission Status: Elective Accout number: [id number] Admission Date: 05-13-2019 : 1960 Admission Diagnosis:UNILATERAL PRIMARY OSTEOARTHRITIS, RIGHT KNEE Attending: JUNE ALMEIDA Current LOS: 2 Anticipated DC Date: Planned Disposition: Home Primary Insurance: [facility] MEDICARE SOLUTIONS Discharge Planning Comments: CM met with patient to complete initial dc planning assessment. CM educated patient on the CM role and verbal consent given by patient to complete assessment. Patient lives at home independently, he lives alone. At discharge patient plans to return home and feels this is a safe discharge. He stated that his son will be his one to drive him home and also take him to and from OP PT at [facility]. CM discussed availability of home health, rehab services, and medical equipment. He has a walker x2 CPM and Ice Machine that was set up by Dr Levy office. I have set up his OP PT appointment for SundayMay 20 @ 9:45am . A copy of the order will be sent home with the patient in his DC packet. IMM served and explained to patient. Patient denied known discharge needs at this time. CM will continue to follow and will assist as needed with dc plans/needs. Ankle Patch Molder: Anita Baeza DCPIA - Discharge Planning Initial Assessment Updated by [id number]: Anita Baeza on 05/15/19 3:06 pm * Is the patient Alert and Oriented? Yes * How many steps to enter\exit or inside your home? 10-14 * PCP FARO * Pharmacy [facility] * Preadmission Environment Home Alone * ADLs Independent * Equipment Rolling Walker Walker * Other Equipment CPM ICE MACHINE * List name and contact numbers for known caregivers / representatives who currently or will assist patient after discharge: KATARZYNA MARCIAL [phone] * Verbal permission to speak to the caregivers and representatives has been obtained from the patient. N/A * Community resources currently utilized None * Additional services required to return to the preadmission environment? Yes * Can the patient safely return to the preadmission environment? Yes * Has this patient been hospitalized within the prior 30 days at any hospital? No Coverage Notice Reviewer: LICHA Baeza Notice Issued Date-Time: 05/15/2019 14:15 Notice Type: IM Discharge Notice Notice Delivered To: Patient Relationship to Patient: Senior Developer Name: Delivery Method: HAND - Hand Delivered Jahaira Days: Prior Verbal Notification: Recipient Understood Notice: Yes Recipient Signature: Yes Med Rec Note Co-signed by Attending: Coverage Notice Comment: Reviewer: LICHA Baeza Notice Issued Date-Time: 05/22/2019 8:40 Notice Type: IM Discharge Notice Notice Delivered To: Patient Relationship to Patient: Senior Developer Name: Delivery Method: HAND - Hand Delivered Jahaira Days: Prior Verbal Notification: Recipient Understood Notice: Yes Recipient Signature: Yes Med Rec Note Co-signed by Attending: Coverage Notice Comment: Reviewer: LICHA Baeza Notice Issued Date-Time: 05/22/2019 8:40 Notice Type: Patient Choice Letter Notice Delivered To: Patient Relationship to Patient: Senior Developer Name: Delivery Method: - Jahaira Days: Prior Verbal Notification: Recipient Understood Notice: Yes Recipient Signature: Yes Med Rec Note Co-signed by Attending: Coverage Notice Comment: [facility] Last DP export: 05/22/19 2:08 p Patient Name: ABHIJEET MARCIAL Page [phone] at 1518 All edits/amendments must be made on the electronic document DICTATION DATE: 05/22/191517 ADVISOR TO COMMAND IN COMBAT: BECK 05/22/191517 RPT#: [id number] DC DATE: STATUS: ADM IN [facility] [address] [place] [address] END OF REPORT
--- NOTE | 2019-05-22 16:30 | NUR ---
DISCHARGE INSTRUCTIONS GIVEN. SEEMS TO UNDERSTAND INSTRUCTIONS. IV OUT TIP INTACT. DENIES ANY FUTHER NEED LEFT WITH [facility] STAFF TO GO TO [facility].
--- NOTE | 2019-05-28 12:25 | MORECARE ---
CASE MANAGEMENT DISCHARGE SUMMARY PATIENT: ABHIJEET MARCIAL UNIT: [id number] ADM DATE: 05/13/19 AGE: 58 : 62 SEX: M ROOM/BED: D.2215 AUTHOR: SRUTHI,DOC PHYSICIAN: REFERRING PHYSICIAN: JUNE ALMEIDA DO DATE OF SERVICE: 05/28/19 Discharge Plan Patient Name: ABHIJEET MARCIAL Facility: [facility]:[place] : 1960 Planned Disposition: Home Anticipated Discharge Date: Discharge Date: 05/22/2019 Expected LOS: 0 Initial Reviewer: [email or web address] Initial Review Date: 05/13/2019 Generated: 05/28/19 1:25 pm Comments DCP- Discharge Planning Updated by [id number]: Anita Baeza on 05/22/19 2:[address] PATIENT WILL BE DISCHARGING TO [facility] TO A SKILLED BED THEY WILL PICK HIM UP 3:30. CM TO FOLLOW AND ASSIST WITH DC PLANNING DCP- Discharge Planning Updated by [id number]: Anita Baeza on 05/22/19 10:[address] RECEIVED AUTH FROM [facility], THEY WILL ACCEPT PATIENT ONCE QAMAR IS BACK DCP- Discharge Planning Updated by [id number]: Anita Baeza on 05/22/19 7:[address] P2P WAS DONE BY DR ALMEIDA FOR INPATIETN REHAB & DENIAL WAS UPHEALD. SPOKE WITH PATIENT ABOUT CHOOSING A SKILLED FACILITY AND HE WOULD LIKE TO GO TO [facility], CRYSTAL SIGNED AND PLACED IN CHART. IMM SERVED AND EXPLAINED AND I WILL SEND REFERRAL TO [facility] DCP- Discharge Planning Updated by [id number]: Anita Baeza on 05/21/19 12:[address] Received a denial for inpatient rehab, spoke with Dr Almeida and he would like to do a Peer to Peer. I called Alessandra at [phone] to set up the P2P. I will wait and see the verdict. DCP- Discharge Planning Updated by [id number]: Jada Villarreal on 05/17/19 12:[address] [facility] IS FOLLOWING THIS PATIENT. PHYSICAL THERAPY EVAL HAS BEEN COMPLETED. THE OT EVAL WILL LIKELY BE DONE ON SUNDAY. THE BUY BOAT OPERATOR WILL FORWARD APPROPRIATE CLINICAL W/ PT AND OT EVAL TO THE PATIENT'S MANAGED MEDICARE INSURER FOR AUTHORIZATION WHEN OT EVAL COMPLETE. LIKELY WILL SUBMIT TO [facility] MEDICARE SOLUTIONS ON SUNDAY. DCP- Discharge Planning Updated by [id number]: Anita Baeza on 05/15/19 2:[address] Patient Name: ABHIJEET MARCIAL Admission Status: Elective Accout number: [id number] Admission Date: 05-13-2019 : 1960 Admission Diagnosis:UNILATERAL PRIMARY OSTEOARTHRITIS, RIGHT KNEE Attending: JUNE ALMEIDA Current LOS: 2 Anticipated DC Date: Planned Disposition: Home Primary Insurance: [facility] MEDICARE SOLUTIONS Discharge Planning Comments: CM met with patient to complete initial dc planning assessment. CM educated patient on the CM role and verbal consent given by patient to complete assessment. Patient lives at home independently, he lives alone. At discharge patient plans to return home and feels this is a safe discharge. He stated that his son will be his one to drive him home and also take him to and from OP PT at [facility]. CM discussed availability of home health, rehab services, and medical equipment. He has a walker x2 CPM and Ice Machine that was set up by Dr Levy office. I have set up his OP PT appointment for SundayMay 20 @ 9:45am . A copy of the order will be sent home with the patient in his DC packet. IMM served and explained to patient. Patient denied known discharge needs at this time. CM will continue to follow and will assist as needed with dc plans/needs. Fixture Repairer Fabricator: Anita Baeza DCPIA - Discharge Planning Initial Assessment Updated by [id number]: Anita Baeza on 05/15/19 3:06 pm * Is the patient Alert and Oriented? Yes * How many steps to enter\exit or inside your home? 10-14 * PCP FARO * Pharmacy [facility] * Preadmission Environment Home Alone * ADLs Independent * Equipment Rolling Walker Walker * Other Equipment CPM ICE MACHINE * List name and contact numbers for known caregivers / representatives who currently or will assist patient after discharge: KATARZYNA MARCIAL [phone] * Verbal permission to speak to the caregivers and representatives has been obtained from the patient. N/A * Community resources currently utilized None * Additional services required to return to the preadmission environment? Yes * Can the patient safely return to the preadmission environment? Yes * Has this patient been hospitalized within the prior 30 days at any hospital? No Coverage Notice Reviewer: LICHA Baeza Notice Issued Date-Time: 05/15/2019 14:15 Notice Type: IM Discharge Notice Notice Delivered To: Patient Relationship to Patient: Instructor Trainer Canine Service Name: Delivery Method: HAND - Hand Delivered Jahaira Days: Prior Verbal Notification: Recipient Understood Notice: Yes Recipient Signature: Yes Med Rec Note Co-signed by Attending: Coverage Notice Comment: Reviewer: LICHA Baeza Notice Issued Date-Time: 05/22/2019 8:40 Notice Type: IM Discharge Notice Notice Delivered To: Patient Relationship to Patient: Instructor Trainer Canine Service Name: Delivery Method: HAND - Hand Delivered Jahaira Days: Prior Verbal Notification: Recipient Understood Notice: Yes Recipient Signature: Yes Med Rec Note Co-signed by Attending: Coverage Notice Comment: Reviewer: LICHA Baeza Notice Issued Date-Time: 05/22/2019 8:40 Notice Type: Patient Choice Letter Notice Delivered To: Patient Relationship to Patient: Instructor Trainer Canine Service Name: Delivery Method: - Jahaira Days: Prior Verbal Notification: Recipient Understood Notice: Yes Recipient Signature: Yes Med Rec Note Co-signed by Attending: Coverage Notice Comment: CRYSTAL FOR SALLY Kee DP export: 05/22/19 2:18 p Patient Name: ABHIJEET MARCIAL Page [phone] at 1225 All edits/amendments must be made on the electronic document DICTATION DATE: 05/28/19 1225 FLEECER: BECK 05/28/19 1225 RPT#: [id number] DC DATE:05/22/19 STATUS: DIS IN [facility] [address] [place] [address] END OF REPORT
== END 2019-05-22 16:31 | DRG 469 ==
LOC: D.SDCHOLD 05-07 10:00 → D.MS 05-13 07:45 → D.SDCHOLD 05-13 09:00 → D.MS 05-13 15:08
PROVIDERS: Anesthesiology; Emergency Medicine; Internal Medicine Nephrology; ADMIT Orthopaedic Surgery; ATTEND Orthopaedic Surgery
PROC: 0SRC0J9 Replacement of Right Knee Joint with Synthetic Substitute, Cemented, Open Approach (ICD-10-PCS; principal; 2019-05-13 09:45)
DX: M17.11 Unilateral primary osteoarthritis, right knee (principal); N17.0 Acute kidney failure with tubular necrosis; D62 Acute posthemorrhagic anemia; F17.213 Nicotine dependence, cigarettes, with withdrawal; B20 Human immunodeficiency virus [HIV] disease; I10 Essential (primary) hypertension; F32.9 Major depressive disorder, single episode, unspecified

== ENCOUNTER 2019-09-16 08:00 | Outpatient (CLI) | payer MEDICARE, MEDICAID ==
[2019-05-19 15:22] VITALS: BMI 30.9
[~2019-09-16 08:00] MED LIST changes: +AMITRIPTYLINE100 MG PO; +BAYER CHEWABLE81 MG PO; +BIKTARVY 50-201 EACH PO; +COREG25 MG PO; +HYDRALAZINE HCL25 MG PO; +HYDROCODON-ACE1 EAC7 PO; +K-DUR20 MEQ PO; +LASIX40 MG PO; +LYRICA100 MG PO; +VERAPAMIL HCL360 MG PO
== END 2019-09-16 23:59 | disposition home or self-care (01) ==
LOC: D.MAMMO 08:00
PROVIDERS: ATTEND Family Medicine
DX: N64.4 Mastodynia (principal)

== ENCOUNTER 2019-12-19 09:45 | Day surgery (SDC) | payer MEDICARE, MEDICAID ==
[2019-12-18 10:07] LABS: INR 1.02 (0.85-1.17); PROTIME 13.3 SECONDS (11.6-15.0)
[2019-12-18 10:08] LABS: APTT 34.6 SECONDS (22.8-39.4)
[2019-12-18 10:10] LABS: ALBUMIN 3.5 g/dL (3.4-5.0); BILIRUBIN - TOTAL 0.29 mg/dL (0.2-1.3); CALCIUM 8.8 mg/dL (8.5-10.1); CARBON DIOXIDE 32.4 mmol/L (21.0-32.0); CREATININE - SERUM 1.7 mg/dL (0.6-1.3); POTASSIUM - SERUM 3.4 mmol/L (3.5-5.1); PROTEIN - SERUM 8.6 g/dL (6.4-8.2)
[2019-12-18 11:36] LABS: HEMATOCRIT 42.7 % (42.0-54.0); HEMOGLOBIN 13.9 g/dL (13.5-17.5); MCH 27.2 pg (26.0-34.0); MCHC 32.6 g/dL (31.0-37.0); MCV 83.6 fL (80.0-100.0); MEAN PLATELET VOLUME 11.2 fL (7.4-10.4); RBC 5.11 10x6/uL (4.20-6.10); RDW 17.1 % (11.5-14.5); WBC 6.2 10x3/uL (4.8-10.8)
[~2019-12-19] VITALS: Ht 182.9 cm; Wt 113.9 kg
[~2019-12-19 09:45] MED LIST changes: +CENTRUM MEN'S1 EACH PO; +HYDROCODON-ACE1 EA10 PO
[2019-12-19 10:51] VITALS: BP 164/93; Ht 182.9 cm; Wt 113.9 kg
[2019-12-19] MEDS ORDERED: DURICEF500 MG PO (13:44)
[2019-12-19] MEDS ORDERED: DILAUDID4 MG PO (13:44)
[2019-12-19] MEDS ORDERED: VISTARIL50 MG PO (13:44)
--- NOTE | 2019-12-20 09:41 | OP ---
PATIENT NAME: ABHIJEET MARCIAL MEDICAL RECORD: [id number] :[birth year] LOCATION:[facility] ADMISSION DATE: SURGEON: HAKAN ALMEIDA DO DATE OF OPERATION: 12/19/2019 PROCEDURE PERFORMED: Right scapholunate ligament reconstruction. PREOPERATIVE DIAGNOSIS: Right scapholunate ligament tear. POSTOPERATIVE DIAGNOSIS: Right scapholunate ligament tear. INDICATIONS: Mr. Marcial is a 59-year-old male, who has had right scapholunate pain for quite some time. He has noticed a decreased dryer and washer mechanic strength and pain in his wrist for quite some time. X-rays did not note gap or widening in the scapholunate space; however, he got an MRI and it did indeed show a tear of the ligament. His volar ligaments were intact as well as dorsal and the interosseous. We talked to him extensively about the risks of this procedure including damage to nerves and vessels, continued wrist pain, loss of motion, and his increased risk of infection due to his HIV positive status. He was okay with that and was aware of all those risks, and he signed a consent. SURGEON: Hakan Almeida DO. I was assisted by Jona Parker, certified surgical presser first. He assisted with retraction and closing. This procedure could not have been performed without him. DESCRIPTION OF PROCEDURE: The patient was given a block by anesthesia in the preoperative area, taken to the operative suite and laid in a supine position, given general anesthetic and LMA was placed. He was given 2 grams of Ancef preoperatively. The right upper extremity was then prepped and draped in sterile fashion. Timeout was performed. Everyone was in agreement with correct side, site, patient and procedure. We then exsanguinated the right upper extremity with an Esmarch and tourniquet was inflated 250 mmHg and it was up for 31 minutes. I then made an incision on the dorsal wrist between the third and fourth dorsal compartments. Careful dissection was made down to the wrist capsule and I did an inverted-T rather to preserve the blood supply to the scaphoid. I then dissected down to the scaphoid and lunate and put 3 K-wires in for the anchors and then 2 K-wires on either side of those and reduced the joint space and clamped the K-wires together with a hemostat. Then drilled 3.0 drill and put the anchors in with the suture tape, first in the scaphoid and then the lunate and then back in the more distal pole of the scaphoid making them come together very nicely. I then put a K-wire in for anti-rotation from the scaphoid into the capitate and this was bent and cut. We then let the tourniquet down and irrigated the wound. The capsule was then closed with 2-0 Vicryl in a [id number]-[id number] in simple fashion and the skin was closed with 2-0 Vicryl in inverted interrupted fashion, 4-0 Monocryl ran on the skin. A Steri-Strip was placed on that and then dressed with Adaptic, 4 x 4s and 4 x 4s and Adaptic covered the pin as well and then he was wrapped with cast padding and placed in a well-padded thumb spica splint. He was awakened and taken to recovery in stable condition. BLOOD LOSS: Minimal. COMPLICATIONS: None. TRANSINT:[id number] Voice Confirmation ID: [id number] DOCUMENT ID: [id number] OPERATIVE REPORT [id number] ABHIJEET MARCIAL MICHAEL D, DO at 0941 CC: [id number] DICTATION DATE: 12/19/19 1341 YARN PREPARATION SUPERVISOR: 12/19/19 5308 [facility] 12/19/19 [id number] [place] [address]
== END 2019-12-19 15:20 | disposition home or self-care (01) ==
LOC: D.OPS 09:45 → D.PAN 12:00 → D.OPS 15:20 → D.PAN 15:55 → D.OPS 17:30
PROVIDERS: Anesthesiology; ATTEND Orthopaedic Surgery
DX: S63.391D Traumatic rupture of other ligament of right wrist, subsequent encounter (principal); M25.531 Pain in right wrist; B18.2 Chronic viral hepatitis C; F17.210 Nicotine dependence, cigarettes, uncomplicated; F10.20 Alcohol dependence, uncomplicated; B20 Human immunodeficiency virus [HIV] disease

== ENCOUNTER → 2020-02-19 10:30 | Outpatient (CLI) | payer MEDICARE, MEDICAID ==
[2019-12-19 10:51] VITALS: BMI 34.1
[~2020-02-19 10:30] MED LIST changes: +DILAUDID4 MG PO; +DURICEF500 MG PO; +VISTARIL50 MG PO
== END | disposition home or self-care (01) ==
LOC: D.LABREF 10:30
PROVIDERS: ATTEND Orthopaedic Surgery
DX: M25.531 Pain in right wrist (principal)

== ENCOUNTER → 2020-05-21 16:00 | Outpatient (CLI) | payer MEDICARE, MEDICAID ==
[2019-12-19 10:51] VITALS: BMI 34.1
[2020-05-21 16:17] LABS: BASOPHILS 0.4 % (0-2); EOSINOPHILS 2.5 % (0-7); HEMATOCRIT 42.3 % (42.0-54.0); HEMOGLOBIN 13.4 g/dL (13.5-17.5); IMMATURE GRANULOCYTES 0.4 % (0-5); LYMPHOCYTES 34.1 % (15-50); MCH 26.9 pg (26.0-34.0); MCHC 31.7 g/dL (31.0-37.0); MCV 84.8 fL (80.0-100.0); MEAN PLATELET VOLUME 10.5 fL (7.4-10.4); MONOCYTES 6.8 % (2-11); NEUTROPHILS 55.8 % (40-80); RBC 4.99 10x6/uL (4.20-6.10); RDW 16.8 % (11.5-14.5); WBC 5.6 10x3/uL (4.8-10.8)
[2020-05-21 16:18] LABS: PLATELET COUNT 234 10x3/uL (130-400)
[2020-05-21 17:25] LABS: ERYTHROCYTE SEDIMENTATION RATE 30 mm/hr (0-20)
== END | disposition home or self-care (01) ==
LOC: D.LABREF 16:00
PROVIDERS: ATTEND Clinical Nurse Specialist Family Health
DX: M25.561 Pain in right knee (principal)

== ENCOUNTER → 2020-06-01 07:45 | Outpatient (CLI) | payer MEDICARE, MEDICAID ==
[2019-12-19 10:51] VITALS: BMI 34.1
== END | disposition home or self-care (01) ==
LOC: D.NM 07:45
PROVIDERS: ATTEND Clinical Nurse Specialist Family Health
DX: Z96.651 Presence of right artificial knee joint (principal)

== ENCOUNTER → 2020-12-24 09:13 | Outpatient (CLI) | payer MEDICARE, MEDICAID ==
[2019-12-19 10:51] VITALS: BMI 34.1
== END | disposition home or self-care (01) ==
LOC: D.NM 09:13
PROVIDERS: ATTEND Clinical Nurse Specialist Family Health
DX: T84.84XA Pain due to internal orthopedic prosthetic devices, implants and grafts, initial encounter (principal)